=== PATIENT | female | born 1980 | race Caucasian/White ===

== ENCOUNTER 2016-06-16 09:41 | Emergency (ER) | payer OTHER ==
[~2016-06-16 09:41] MED LIST: INSU100C4 SQ; INSU100V8 SQ; ONDA8TAB9 PO
[2016-06-16 09:53] VITALS: BP 146/94
[2016-06-16] MEDS ORDERED: PENICILLIN G BENZATHINE LA 1,200,000 UNIT/2 ML DISP.SYRIN. IM ONE (10:30)
--- NOTE | 2016-06-16 11:01 | PHYS DOC ---
Past Medical History Past Medical History: Diabetes-Type II Past Surgical History: Hysterectomy Additional Past Surgical Histo: D&C, Ablation Alcohol Use: None Drug Use: None Adult General Chief Complaint Chief Complaint: SORE THROAT HPI HPI Patient is a 35 year old female with history of diabetes type 2 who presents with a sore throat and a cough for 2 days. Patient denies any fever. Review of Systems Review of Systems Constitutional: See history of present illness Eyes: Denies change in visual acuity, redness, or eye pain [] HENT: sore throat [] Respiratory: Cough Cardiovascular: No additional information not addressed in HPI [] GI: Denies abdominal pain, nausea, vomiting, bloody stools or diarrhea [] : Denies dysuria or hematuria [] Musculoskeletal: Denies back pain or joint pain [] Integument: Denies rash or skin lesions [] Neurologic: Denies headache, focal weakness or sensory changes [] Endocrine: Denies polyuria or polydipsia [] Current Medications Current Medications Current Medications Medications (Trade) Dose Ordered Sig/Michael Start Time Stop Time Status Last Admin Dose Admin Penicillin G Benzathine (Bicillin L-A) 1,200,000 unit 1X ONCE 06/16/16 10:30 06/16/16 10:31 DC 06/16/16 10:35 1,200,000 UNIT Allergies Allergies Allergies Coded Allergies Type Severity Reaction Last Updated Verified No Known Drug Allergies 06/16/16 No Physical Exam Physical Exam Constitutional: Well developed, well nourished, no acute distress, non-toxic appearance. [] HENT: Normocephalic, atraumatic, bilateral external ears normal, oropharynx moist, no oral exudates, nose normal. [] Midline uvula, posterior pharynx with small amount of petechiae Eyes: PERRLA, EOMI, conjunctiva normal, no discharge. [] Neck: Normal range of motion, no tenderness, supple, no stridor. [] Cardiovascular:Heart rate regular rhythm, no murmur [] Lungs & Thorax: Bilateral breath sounds clear to auscultation [] Abdomen: Bowel sounds normal, soft, no tenderness, no masses, no pulsatile masses. [] Skin: Warm, dry, no erythema, no rash. [] Back: No tenderness, no CVA tenderness. [] Extremities: No tenderness, no cyanosis, no clubbing, ROM intact, no edema. [] Neurologic: Alert and oriented X 3, normal motor function, normal sensory function, no focal deficits noted. [] Psychologic: Affect normal, judgement normal, mood normal. [] Current Patient Data Vital Signs Vital Signs Date Time Temp Pulse Resp B/P Pulse Ox O2 Delivery O2 Flow Rate FiO2 06/16/16 09:53 98.3 102 16 96 Room Air 98.3 EKG EKG [] Radiology/Procedures Radiology/Procedures [] Course & Med Decision Making Course & Med Decision Making Pertinent Labs and Imaging studies reviewed. (See chart for details) Patient is in the ED with sore throat and a cough. Positive rapid strep. She is given Bicillin injection. Discharged with instructions to use saltwater gargles as needed. Tylenol/ Motrin for pain or fever. Follow-up with PCP in 1-2 weeks. Dragon Disclaimer Dragon Disclaimer This electronic medical record was generated, in whole or in part, using a voice recognition dictation system. Departure Departure Impression: Primary Impression: Acute streptococcal pharyngitis Disposition: HOME, SELF-CARE Condition: STABLE Referrals: NO PCP (PCP) Follow-up with your own doctor in one week Patient Instructions: Strep Throat Additional Instructions: You were diagnosed with strep in the emergency room. You were treated with Bicillin injection. Take Tylenol every 4 hours and Motrin every 6 hours as needed for pain. Use saltwater gargles as well. Come back to the emergency room for any worsening or concerning symptoms. Follow-up with your PCP/primary care doctor in one week PAIGE CABRERA APRN Jun 16, 2016 11:01
[2016-06-17 08:01] LABS: NEGATIVE OBC STREP NEG; POSITIVE OBC STREP POS
== END 2016-06-16 11:15 | disposition home or self-care (01) ==
LOC: ER 09:41
DX: J02.0 Streptococcal pharyngitis (principal); E11.9 Type 2 diabetes mellitus without complications; Z90.710 Acquired absence of both cervix and uterus
CPT/HCPCS: 87880; 96372; 99283; J0561

== ENCOUNTER 2016-08-30 07:36 | Emergency (ER) | payer OTHER ==
[~2016-08-30] VITALS: Ht 147.3 cm; Wt 79.4 kg
[2016-08-30] MEDS ORDERED: ASPIRIN 325 MG TABLET PO ONE (08:15)
--- NOTE | 2016-08-30 08:16 | PHYS DOC ---
Past Medical History Past Medical History: Diabetes-Type II Past Surgical History: Hysterectomy Additional Past Surgical Histo: D&C, Ablation Alcohol Use: None Drug Use: None Adult General Chief Complaint Chief Complaint: GENERALIZED BODY ACHES HPI HPI Patient is a 35 year old female with history of diabetes type 2 who presents today with multiple complaints. Patient states she's had generalized body aches for the last 1 week. Patient states the headaches are worse on her right foot. Patient denies any trauma to the right foot. Patient's also complaining of mild mid substernal chest pain radiating to her back that began 2 days ago. She states her substernal chest pain is worse when she takes a deep breath. She states she's been taking ibuprofen for it with no relief. Patient denies any chance she is . Denies any use of hormones, denies any recent hospitalization, denies any shortness of breath. Denies any unilateral leg pain. Denies any fever coughing or congestion. Review of Systems Review of Systems Constitutional: Body aches Eyes: Denies change in visual acuity, redness, or eye pain [] HENT: Denies nasal congestion or sore throat [] Respiratory: Denies cough or shortness of breath [] Cardiovascular: Substernal chest pain GI: Denies abdominal pain, nausea, vomiting, bloody stools or diarrhea [] : Denies dysuria or hematuria [] Musculoskeletal: Denies back pain or joint pain [] Integument: Denies rash or skin lesions [] Neurologic: Denies headache, focal weakness or sensory changes [] Endocrine: Denies polyuria or polydipsia [] Current Medications Current Medications Current Medications Medications (Trade) Dose Ordered Sig/[facility] Start Time Stop Time Status Last Admin Dose Admin Aspirin (Dennys Aspirin) 325 mg 1X ONCE 08/30/16 08:15 08/30/16 08:16 DC 08/30/16 08:56 325 MG Allergies Allergies Allergies Coded Allergies Type Severity Reaction Last Updated Verified No Known Drug Allergies 06/16/16 No Physical Exam Physical Exam Constitutional: Well developed, well nourished, no acute distress, non-toxic appearance. [] HENT: Normocephalic, atraumatic, bilateral external ears normal, oropharynx moist, no oral exudates, nose normal. [] Eyes: PERRLA, EOMI, conjunctiva normal, no discharge. [] Neck: Normal range of motion, no tenderness, supple, no stridor. [] Cardiovascular:Heart rate regular rhythm, no murmur [] Lungs & Thorax: Bilateral breath sounds clear to auscultation [] Abdomen: Bowel sounds normal, soft, no tenderness, no masses, no pulsatile masses. [] Skin: Warm, dry, no erythema, no rash. [] Back: No tenderness, no CVA tenderness. [] Extremities: Right foot with no obvious deformity. No tenderness on palpation of the right foot. Full range of motion to the right foot and toes. +2 right pedal pulse. Cap refill less than 2 seconds the right lower extremity. Sensation intact to the right lower extremity. Neurologic: Alert and oriented X 3, normal motor function, normal sensory function, no focal deficits noted. [] Psychologic: Affect normal, judgement normal, mood normal. [] Current Patient Data Vital Signs Vital Signs Date Time Temp Pulse Resp B/P Pulse Ox O2 Delivery O2 Flow Rate FiO2 08/30/16 08:54 80 18 140/96 96 08/30/16 07:44 97.9 Room Air 97.9 Lab Values Laboratory Tests Test 08/30/16 08:36 08/30/16 08:45 08/30/16 09:05 White Blood Count 7.6x10^3/uL (4.0-11.0) Red Blood Count 4.72x10^6/uL (3.50-5.40) Hemoglobin 15.1g/dL (12.0-15.5) Hematocrit 42.3% (36.0-47.0) Mean Corpuscular Volume 90fL (79-100) Mean Corpuscular Hemoglobin 32pg (25-35) Mean Corpuscular Hemoglobin Concent 36g/dL (31-37) Red Cell Distribution Width 13.3% (11.5-14.5) Platelet Count 153x10^3/uL (140-400) Neutrophils (%) (Auto) 69% (31-73) Lymphocytes (%) (Auto) 24% (24-48) Monocytes (%) (Auto) 5% (0-9) Eosinophils (%) (Auto) 2% (0-3) Basophils (%) (Auto) 1% (0-3) Neutrophils # (Auto) 5.2x10^3uL (1.8-7.7) Lymphocytes # (Auto) 1.8x10^3/uL (1.0-4.8) Monocytes # (Auto) 0.3x10^3/uL (0.0-1.1) Eosinophils # (Auto) 0.1x10^3/uL (0.0-0.7) Basophils # (Auto) 0.1x10^3/uL (0.0-0.2) Prothrombin Time 13.0SEC (11.7-14.0) Prothrombin Time INR 1.0 (0.8-1.1) D-Dimer (Eryn) < 0.27ug/mlFEU (0.00-0.50) Urine Collection Type Unknown Urine Color Yellow Urine Clarity Cloudy Urine pH 6.0 Urine Specific [place] >=1.030 Urine Protein 30mg/dL (NEG-TRACE) Urine Glucose (UA) >=1000mg/dL (NEG) Urine Ketones (Stick) Negativemg/dL (NEG) Urine Blood Small (NEG) Urine Nitrite Positive (NEG) Urine Bilirubin Negative (NEG) Urine Urobilinogen Dipstick 0.2mg/dL (0.2 mg/dL) Urine Leukocyte Esterase Moderate (NEG) Urine RBC 6-10/HPF (0-2) Urine WBC >40/HPF (0-4) Urine Bacteria Many/HPF (0-FEW) Sodium Level 133mmol/L (136-145) L Potassium Level 4.1mmol/L (3.5-5.1) Chloride Level 98mmol/L (98-107) Carbon Dioxide Level 28mmol/L (21-32) Anion Gap 7 (6-14) Blood Urea Nitrogen 9mg/dL (7-20) Creatinine 0.8mg/dL (0.6-1.0) Estimated GFR (Cockcroft-Gault) 81.6 Glucose Level 319mg/dL (70-99) H Calcium Level 8.8mg/dL (8.5-10.1) Magnesium Level 1.6mg/dL (1.8-2.4) L Creatine Kinase 38U/L (26-192) Creatine Kinase MB (Mass) < 0.5ng/mL (0.0-3.6) Creatine Kinase MB Relative Index % (0-4) Troponin I Quantitative < 0.017ng/mL (0.000-0.055) Urine Opiates Screen Neg (NEG) Urine Methadone Screen Neg (NEG) Urine Barbiturates Neg (NEG) Urine Phencyclidine Screen Neg (NEG) Urine Amphetamine/Methamphetamine Neg (NEG) Urine Benzodiazepines Screen Neg (NEG) Urine Cocaine Screen Neg (NEG) Urine Cannabinoids Screen Neg (NEG) Urine Ethyl Alcohol Neg (NEG) Influenza Type A Antigen Negative (NEGATIVE) Influenza Type B Antigen Negative (NEGATIVE) Group A Streptococcus Rapid Positive (NEGATIVE) Laboratory Tests 08/30/16 08:36 Laboratory Tests 08/30/16 08:36 EKG EKG [] Radiology/Procedures Radiology/Procedures []PROCEDURE: FOOT RIGHT 3V Right foot radiographs History: Right foot pain for one week. Comparison: None. Findings: AP, lateral, and oblique views of the right foot. No acute fracture or dislocation is identified. Small Achilles tendon and moderate plantar calcaneal enthesophytes are seen. Accessory navicular is seen. Impression: 1. No acute osseous abnormality identified. 2. Calcaneal enthesophytes. DICTATED and SIGNED BY: EDSON MELENDREZ MD DATE: 08/30/16828 CC: PAIGE CABRERA APRN; NON,STAFF; UNKNOWN PCP NAME ~ PROCEDURE: PORTABLE CHEST 1V Exam: AP portable chest. History: Chest pain, body weakness for one week. Comparison: None. Findings: The heart and mediastinal structures are within normal limits for size. Lungs are without infiltrate. No pneumothorax or pleural effusion is appreciated. Impression: 1. No acute cardiopulmonary process. DICTATED and SIGNED BY: EDSON MELENDREZ MD DATE: 08/30/16828 CC: PAIGE CABRERA APRN; NON,STAFF; UNKNOWN PCP NAME ~ Course & Med Decision Making Course & Med Decision Making Pertinent Labs and Imaging studies reviewed. (See chart for details) Patient is in the ED with complaints of generalized body aches worse on the right foot, she is also complaining of substernal chest pain. Chest x-ray interpreted by radiologist is negative for any acute findings. Right foot x-rays interpreted by radiologist are noted for calcaneus enthesophytes Patient's lab negative including troponin and d-dimer. 08:[address] Selby sinus rhythm heart rate 75 QRS interval 90 no STEMI. Urine positive for UTI. Patient was discharged with cephalexin. Instructed to follow-up with her own PCP in one week. Bobby Disclaimer Bobby Disclaimer This electronic medical record was generated, in whole or in part, using a voice recognition dictation system. Departure Departure Impression: Primary Impression: Body aches Additional Impressions: Urinary tract infection Chest pain Disposition: HOME, SELF-CARE Condition: STABLE Referrals: UNKNOWN PCP NAME (PCP) follow-up with your doctor in one week Patient Instructions: Chest Pain (Nonspecific), Urinary Tract Infection Additional Instructions: You tested positive for urinary tract infection. Please complete your antibiotics. Take ibuprofen 3 times a day chest pain. Your cardiac workup was negative. Follow-up with your doctor in the next 1 week. Scripts Ibuprofen 800 Mg [id number] Mg PO PRN Q6HRS PRN INFLAMMATION #30 TAB Prov:PAIGE CABRERA PHYSICAL THERAPY MANAGER 08/30/16 Cephalexin 500 Mg Tablet1 Tab PO BID #14 TAB Prov:PAIGE CABRERA PHYSICAL THERAPY MANAGER 08/30/16 Problem Qualifiers Additional Impressions: Urinary tract infection Urinary tract infection type: site unspecified Hematuria presence: without hematuria Qualified Code: N39.0 - Urinary tract infection, site not specified Chest pain Chest pain type: unspecified Qualified Code: R07.9 - Chest pain, unspecified PAIGE CABRERA PHYSICAL THERAPY MANAGER Aug 30, 2016 08:16
--- NOTE | 2016-08-30 08:31 | RAD ---
Exam: AP portable chest. History: Chest pain, body weakness for one week. Comparison: None. Findings: The heart and mediastinal structures are within normal limits for size. Lungs are without infiltrate. No pneumothorax or pleural effusion is appreciated. Impression: 1. No acute cardiopulmonary process.
--- NOTE | 2016-08-30 08:33 | RAD ---
Right foot radiographs History: Right foot pain for one week. Comparison: None. Findings: AP, lateral, and oblique views of the right foot. No acute fracture or dislocation is identified. Small Achilles tendon and moderate plantar calcaneal enthesophytes are seen. Accessory navicular is seen. Impression: 1. No acute osseous abnormality identified. 2. Calcaneal enthesophytes.
[2016-08-30 08:46] LABS: BASO # 0.1 x10^3/uL (0.0-0.2); BASO % 1 % (0-3); EOS % 2 % (0-3); HEMATOCRIT 42.3 % (36.0-47.0); HEMOGLOBIN 15.1 g/dL (12.0-15.5); LYMPH # 1.8 x10^3/uL (1.0-4.8); LYMPH % 24 % (24-48); MEAN CORPUSCULAR HEMOGLOBIN 32 pg (25-35); MEAN CORPUSCULAR HGB CONC 36 g/dL (31-37); MEAN CORPUSCULAR VOLUME 90 fL (79-100); MONO % 5 % (0-9); NEUT % 69 % (31-73); PLATELET COUNT 153 x10^3/uL (140-400); RED BLOOD COUNT 4.72 x10^6/uL (3.50-5.40); RED CELL DISTRIBUTION WIDTH 13.3 % (11.5-14.5); WHITE BLOOD COUNT 7.6 x10^3/uL (4.0-11.0)
--- NOTE | 2016-08-30 08:57 | EKG ---
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
[2016-08-30 09:01] LABS: BILIRUBIN,URINE NEGATIVE (NEG); GLUCOSE,URINE >=1000 mg/dL (NEG); NITRITE,URINE POSITIVE (NEG); PROTEIN,URINE 30 mg/dL (NEG-TRACE); UROBILINOGEN,URINE 0.2 mg/dL (0.2 mg/dL)
[2016-08-30 09:07] LABS: BARBITURATES NEG (NEG); BENZODIAZEPINES NEG (NEG); CANNABINOIDS NEG (NEG); COCAINE NEG (NEG); METHADONE NEG (NEG); OPIATES NEG (NEG); PHENCYCLIDINE NEG (NEG)
[2016-08-30 09:12] LABS: BACTERIA,URINE MANY /HPF (0-FEW); WBC,URINE >40 /HPF (0-4)
[2016-08-30 09:16] LABS: CKMB MASS < 0.5 ng/mL (0.0-3.6); CREATINE KINASE 38 U/L (26-192)
[2016-08-30 09:17] LABS: OBC FLU VALID
[2016-08-30 09:24] LABS: CALCIUM 8.8 mg/dL (8.5-10.1); CREATININE 0.8 mg/dL (0.6-1.0); GFR 81.6; MAGNESIUM 1.6 mg/dL (1.8-2.4); POTASSIUM 4.1 mmol/L (3.5-5.1)
[2016-08-30 09:46] LABS: NEGATIVE OBC STREP NEG; POSITIVE OBC STREP POS
[2016-08-30] MEDS ORDERED: CEPH500T PO (10:00)
[2016-08-30] MEDS ORDERED: IBUP-1060 PO (10:00)
[2016-08-30 11:00] VITALS: BP 142/86
== END 2016-08-30 11:02 | disposition home or self-care (01) ==
LOC: ER 07:36
DX: R07.9 Chest pain, unspecified (principal); M79.671 Pain in right foot; E11.9 Type 2 diabetes mellitus without complications; N39.0 Urinary tract infection, site not specified; Z90.710 Acquired absence of both cervix and uterus
CPT/HCPCS: 36415; 71010; 73630; 80048; 80305; 81001; 82553; 83735; 84484; 85027; 85379; 85610; 87804; 87880; 93005; G0481; 99285-25

== ENCOUNTER 2016-09-17 20:40 | Emergency (ER) | payer OTHER ==
[~2016-09-17] VITALS: Ht 147.3 cm; Wt 77.1 kg
[~2016-09-17 20:40] MED LIST changes: +CEPH500T PO; +IBUP-1060 PO
[2016-09-17 20:59] VITALS: BP 163/95
--- NOTE | 2016-09-17 21:08 | PHYS DOC ---
Past Medical History Past Medical History: Diabetes-Type II Past Surgical History: Hysterectomy Additional Past Surgical Histo: D&C, Ablation Alcohol Use: None Drug Use: None Adult General Chief Complaint Chief Complaint: SKIN PROBLEM HPI HPI Patient is a 36 year old into the emergency department with complaints of pain just above the umbilicus. She states it is an intermittent pain and she often will feel a popping sensation. She states it is not present at the time in the emergency department visit but notes that it gets bigger or tenderness to occur when she is standing or bearing down. She reports no fever, no nausea, vomiting , no diarrhea. She reports no discomfort except when she feels there is an area of bulging at her umbilicus. Review of Systems Review of Systems Constitutional: Denies fever or chills [] Eyes: Denies change in visual acuity, redness, or eye pain [] HENT: Denies nasal congestion or sore throat [] Respiratory: Denies cough or shortness of breath [] Cardiovascular: No additional information not addressed in HPI [] GI: Denies abdominal pain, nausea, vomiting, bloody stools or diarrhea [] : Denies dysuria or hematuria [] Musculoskeletal: Denies back pain or joint pain [] Integument: Denies rash or skin lesions [] Neurologic: Denies headache, focal weakness or sensory changes [] Endocrine: Denies polyuria or polydipsia [] Allergies Allergies Allergies Coded Allergies Type Severity Reaction Last Updated Verified No Known Drug Allergies 06/16/16 No Physical Exam Physical Exam Constitutional: Well developed, well nourished, no acute distress, non-toxic appearance. [] HENT: Normocephalic, atraumatic, bilateral external ears normal, oropharynx moist, no oral exudates, nose normal. [] Eyes: PERRLA, EOMI, conjunctiva normal, no discharge. [] Neck: Normal range of motion, no tenderness, supple, no stridor. [] Cardiovascular:Heart rate regular rhythm, no murmur [] Lungs & Thorax: Bilateral breath sounds clear to auscultation [] Abdomen: Bowel sounds normal, soft, no tenderness, no masses, no pulsatile masses. There is a small defect in the rectus abdominis, approximately 2 cm above the umbilicus. There is no herniation of bowel noted at time of exam. [] Skin: Warm, dry, no erythema, no rash. [] Back: No tenderness, no CVA tenderness. [] Extremities: No tenderness, no cyanosis, no clubbing, ROM intact, no edema. [] Neurologic: Alert and oriented X 3, normal motor function, normal sensory function, no focal deficits noted. [] Psychologic: Affect normal, judgement normal, mood normal. [] EKG EKG [] Radiology/Procedures Radiology/Procedures [] Course & Med Decision Making Course & Med Decision Making Pertinent Labs and Imaging studies reviewed. (See chart for details) [] Dragon Disclaimer Dragon Disclaimer This electronic medical record was generated, in whole or in part, using a voice recognition dictation system. Departure Departure Impression: Primary Impression: Hernia of abdominal wall Disposition: 01 HOME, SELF-CARE Condition: STABLE Referrals: ZANE ORTIZ MD Patient Instructions: Hernia, [id number] Additional Instructions: [id number] Tylenol and/or Motrin as needed for symptom management please follow the label on the medication and take as directed. MIGUELITO WOODY CONCERT PROMOTER September 17, 2016 21:08
== END 2016-09-17 21:17 | disposition home or self-care (01) ==
LOC: ER 20:40
DX: K43.9 Ventral hernia without obstruction or gangrene (principal); E11.9 Type 2 diabetes mellitus without complications; Z90.710 Acquired absence of both cervix and uterus
CPT/HCPCS: 99281

== ENCOUNTER 2016-09-26 20:13 | Inpatient (IN) | payer OTHER ==
[~2016-09-26] VITALS: Ht 147.3 cm; Wt 77.6 kg
[2016-09-26 21:23] LABS: BILIRUBIN,URINE NEGATIVE (NEG); GLUCOSE,URINE >=1000 mg/dL (NEG); NITRITE,URINE NEGATIVE (NEG); PH,URINE 5.5; PROTEIN,URINE NEGATIVE (NEG-TRACE); UROBILINOGEN,URINE 0.2 mg/dL (0.2 mg/dL)
[2016-09-26 21:33] LABS: BACTERIA,URINE 0 /HPF (0-FEW); RBC,URINE 0 /HPF (0-2); SQUAMOUS EPITHELIAL CELL,UR FEW /LPF; WBC,URINE 0 /HPF (0-4)
[2016-09-26 21:44] LABS: BASO % 0 % (0-3); EOS % 1 % (0-3); HEMATOCRIT 43.9 % (36.0-47.0); LYMPH % 21 % (24-48); MEAN CORPUSCULAR HEMOGLOBIN 32 pg (25-35); MEAN CORPUSCULAR HGB CONC 34 g/dL (31-37); MEAN CORPUSCULAR VOLUME 92 fL (79-100); MONO % 5 % (0-9); NEUT % 73 % (31-73); PLATELET COUNT 158 x10^3/uL (140-400); RED BLOOD COUNT 4.77 x10^6/uL (3.50-5.40); RED CELL DISTRIBUTION WIDTH 13.3 % (11.5-14.5); WHITE BLOOD COUNT 9.4 x10^3/uL (4.0-11.0)
[2016-09-26] MEDS: fentaNYL PF VIAL 100 MCG/2 ML VIAL IV PRN ×3 (21:46→23:24)
[2016-09-26 21:53] LABS: CALCIUM 9.2 mg/dL (8.5-10.1); CREATININE 0.7 mg/dL (0.6-1.0); GFR 94.7; POTASSIUM 3.5 mmol/L (3.5-5.1)
[2016-09-26 21:58] LABS: DIRECT BILIRUBIN 0.1 mg/dL (0.0-0.2); TOTAL BILIRUBIN 0.6 mg/dL (0.2-1.0); TOTAL PROTEIN 8.6 g/dL (6.4-8.2)
[2016-09-26] MEDS ORDERED: ONDANSETRON PF 4 MG/2 ML VIAL. IV ONE (22:00)
[2016-09-26] MEDS ORDERED: IV NORMAL SALINE 1000ML BAG 1,000 ML IV SCH (22:00)
--- NOTE | 2016-09-26 22:21 | PHYS DOC ---
Past Medical History Past Medical History: Diabetes-Type II Past Surgical History: Hysterectomy Additional Past Surgical Histo: D&C, Ablation Alcohol Use: None Drug Use: None Adult General Chief Complaint Chief Complaint: ABDOMINAL PAIN HPI HPI Patient is a 36 year old female who presents with umbilical abdominal pain associated with periumbilical mass concerned for umbilical hernia that is stuck. She notes pain and protrusion since waking at 5 AM. Her pain is constant , gradually worsening, achy, now severe. She notes nausea and vomiting times multiple that is nonbloody and nonbilious. She notes slight supraumbilical crampy pain with urination well. States she has had some diarrhea today. She denies fever or chills, chest pain, cough, hematuria, back pain, dark or bloody stools. Review of Systems Review of Systems Constitutional: Denies fever or chills [] Eyes: Denies change in visual acuity, redness, or eye pain [] HENT: Denies nasal congestion or sore throat [] Respiratory: Denies cough or shortness of breath [] Cardiovascular: No additional information not addressed in HPI [] GI: Denies bloody stools or bloody emesis [] : Denies dysuria or hematuria [] Musculoskeletal: Denies back pain or joint pain [] Integument: Denies rash or skin lesions [] Neurologic: Denies headache, focal weakness or sensory changes [] Endocrine: Denies polyuria or polydipsia [] Current Medications Current Medications Current Medications Medications (Trade) Dose Ordered Sig/Michael Start Time Stop Time Status Last Admin Dose Admin Fentanyl Citrate (Fentanyl 2ml Vial) 50 mcg PRN Q15MIN PRN 09/26/16 21:45 09/27/16 21:44 09/26/16 22:16 50 MCG Info (Do NOT chart on this entry -- for MONITORING) 1 each PRN DAILY PRN 09/26/16 22:30 09/28/16 22:29 Iohexol (Omnipaque 300 Mg/ml) 75 ml 1X ONCE 09/26/16 23:00 09/26/16 23:01 DC 09/26/16 22:29 75 ML Ondansetron HCl (Zofran) 4 mg 1X ONCE 09/26/16 22:00 09/26/16 22:01 DC 09/26/16 21:43 4 MG Sodium Chloride 1,000 ml @ 1,000 mls/hr Q1H 09/26/16 22:00 09/26/16 22:59 DC 09/26/16 21:41 1,000 MLS/HR Allergies Allergies Allergies Coded Allergies Type Severity Reaction Last Updated Verified No Known Drug Allergies 06/16/16 No Physical Exam Physical Exam Constitutional: Well developed, well nourished, no acute distress, non-toxic appearance. [] HENT: Normocephalic, atraumatic, bilateral external ears normal, oropharynx moist, nose normal. [] Eyes: PERRLA, EOMI. [] Neck: Normal range of motion, supple. [] Cardiovascular:Heart rate regular rhythm [] Lungs & Thorax: Bilateral breath sounds clear to auscultation [] Abdomen: Bowel sounds normal, soft, mild general tenderness with moderate umbilical tenderness; palpable umbilical hernia that does not reduce with no overlying skin changes, crepitance, or induration. [] Skin: Warm, dry, no erythema, no rash. [] Back: No tenderness, no CVA tenderness. [] Extremities: No tenderness, ROM intact, no edema. [] Neurologic: Alert and oriented X 3, normal motor function, normal sensory function, no focal deficits noted. [] Psychologic: Affect normal, judgement normal, mood normal. [] Current Patient Data Vital Signs Vital Signs Date Time Temp Pulse Resp B/P (MAP) Pulse Ox O2 Delivery O2 Flow Rate FiO2 09/26/16 22:16 96 Room Air 09/26/16 21:46 16 09/26/16 20:52 99.4 112 173/94 (120) 99.4 Lab Values Laboratory Tests Test 09/26/16 20:13 09/26/16 20:51 09/26/16 21:00 POC Urine HCG, Qualitative Hcg negative (Negative) Urine Collection Type Unknown Urine Color Yellow Urine Clarity Clear Urine pH 5.5 Urine Specific [place] 1.025 Urine Protein Negative mg/dL (NEG-TRACE) Urine Glucose (UA) >=1000 mg/dL (NEG) Urine Ketones (Stick) Negative mg/dL (NEG) Urine Blood Negative (NEG) Urine Nitrite Negative (NEG) Urine Bilirubin Negative (NEG) Urine Urobilinogen Dipstick 0.2 mg/dL (0.2 mg/dL) Urine Leukocyte Esterase Negative (NEG) Urine RBC 0 /HPF (0-2) Urine WBC 0 /HPF (0-4) Urine Squamous Epithelial Cells Few /LPF Urine Bacteria 0 /HPF (0-FEW) White Blood Count 9.4 x10^3/uL (4.0-11.0) Red Blood Count 4.77 x10^6/uL (3.50-5.40) Hemoglobin 15.0 g/dL (12.0-15.5) Hematocrit 43.9 % (36.0-47.0) Mean Corpuscular Volume 92 fL (79-100) Mean Corpuscular Hemoglobin 32 pg (25-35) Mean Corpuscular Hemoglobin Concent 34 g/dL (31-37) Red Cell Distribution Width 13.3 % (11.5-14.5) Platelet Count 158 x10^3/uL (140-400) Neutrophils (%) (Auto) 73 % (31-73) Lymphocytes (%) (Auto) 21 % (24-48) L Monocytes (%) (Auto) 5 % (0-9) Eosinophils (%) (Auto) 1 % (0-3) Basophils (%) (Auto) 0 % (0-3) Neutrophils # (Auto) 6.8 x10^3uL (1.8-7.7) Lymphocytes # (Auto) 2.0 x10^3/uL (1.0-4.8) Monocytes # (Auto) 0.5 x10^3/uL (0.0-1.1) Eosinophils # (Auto) 0.1 x10^3/uL (0.0-0.7) Basophils # (Auto) 0.0 x10^3/uL (0.0-0.2) Sodium Level 133 mmol/L (136-145) L Potassium Level 3.5 mmol/L (3.5-5.1) Chloride Level 95 mmol/L (98-107) L Carbon Dioxide Level 25 mmol/L (21-32) Anion Gap 13 (6-14) Blood Urea Nitrogen 11 mg/dL (7-20) Creatinine 0.7 mg/dL (0.6-1.0) Estimated GFR (Cockcroft-Gault) 94.7 Glucose Level 322 mg/dL (70-99) H Lactic Acid Level 2.5 mmol/L (0.4-2.0) H Calcium Level 9.2 mg/dL (8.5-10.1) Total Bilirubin 0.6 mg/dL (0.2-1.0) Direct Bilirubin 0.1 mg/dL (0.0-0.2) Aspartate Amino Transferase (AST) 43 U/L (15-37) H Alanine Aminotransferase (ALT) 65 U/L (14-59) H Alkaline Phosphatase 86 U/L (46-116) Total Protein 8.6 g/dL (6.4-8.2) H Albumin 4.0 g/dL (3.4-5.0) Lipase 466 U/L (73-393) H Laboratory Tests 09/26/16 21:00 Laboratory Tests 09/26/16 21:00 Radiology/Procedures Radiology/Procedures CT abdomen and pelvis with IV contrast Impression: 1. There is again fat-containing umbilical hernia, no internal bowel. 2. There is diffuse hepatic steatosis. There is hepatomegaly. 3. There is likely right adnexal cyst. Electronically signed by: Osiel Harris MD (09/26/2016 10:51 PM) Course & Med Decision Making Course & Med Decision Making Pertinent Labs and Imaging studies reviewed. (See chart for details) Has lactic acidosis, with largely unremarkable laboratory evaluation otherwise. Have concern for strangulated hernia. Discussed case with Dr. Das, general surgery, who recommends CT abdomen/pelvis. CT as above. Discussed further with Dr. Das, who recommends admission and surgery in the a.m. Discussed case with Dr. eFrguson, who will admit. Dragon Disclaimer Dragon Disclaimer This electronic medical record was generated, in whole or in part, using a voice recognition dictation system. Departure Departure Impression: Primary Impression: Incarcerated umbilical hernia Disposition: ADMITTED INPATIENT Condition: STABLE Referrals: JANNETH VILLAVICENCIO (PCP) Rj RHODES MD September 26, 2016 22:20
[2016-09-26] MEDS ORDERED: CONTRAST GIVEN MC PRN (22:30)
--- NOTE | 2016-09-26 22:54 | RAD ---
CT abdomen and pelvis with contrast History: Umbilical pain for few weeks, nausea, vomiting, diarrhea Technique: After the administration of intravenous contrast, CT imaging was performed of the abdomen and pelvis. No oral contrast was given as per request. Multiplanar images are reviewed. Exposure: One or more of the following individualized dose reduction techniques were utilized for this examination: 1. Automated exposure control 2. Adjustment of the mA and/or kV according to patient size 3. Use of iterative reconstruction technique. Contrast: 75 cc Omnipaque 300 Comparison: December 25, 2015 Findings: There is no significant abnormality of the visualized lung bases. There is no significant focal abnormality of the liver, spleen, pancreas, adrenal glands. There is diffuse hepatic steatosis more apparent on this exam. There is hepatomegaly, right lobe of the liver on the order of 22 cm longitudinal. Both kidneys enhance without hydronephrosis. Gallbladder is present without obvious intraluminal abnormality by CT. Accurate evaluation of bowel is limited without oral contrast. There is no significant inflammatory change adjacent to the bowel. There is no evidence of bowel obstruction, free fluid, or free air. Normal appendix is visualized. There is again fat-containing umbilical hernia, neck on the order of 1 cm with transverse dimension of the hernia sac on the order of 3 cm. There is no internal bowel. There is mild colonic diverticulosis. There again has been hysterectomy. There is again a clip in the right pelvis, adjacent focus of ground density probably due to adnexal cyst greater than previously. Urinary bladder morphology is within normal limits. Impression: 1. There is again fat-containing umbilical hernia, no internal bowel. 2. There is diffuse hepatic steatosis. There is hepatomegaly. 3. There is likely right adnexal cyst. Electronically signed by: Osiel Harris MD (09/26/2016 10:51 PM)
[2016-09-26] MEDS ORDERED: IOHEXOL 300 MG/ML 75 ML VIAL IV ONE (23:00)
[2016-09-26] MEDS ORDERED: ACETAMINOPHEN 325 MG TABLET. PO PRN (23:15)
--- NOTE | 2016-09-26 23:19 | ACF ---
Admission Forms Criteria ABDOMINAL PAIN Clinical Indications for Admission to Inpatient Care (Place 'X' for any and all applicable criteria): Admission is indicated for ANY ONE of the following(1)(2)(3)(4)(5): [X ]I. Inpatient admission required rather than observation care (Also use Abdominal Pain: Observation Care, as appropriate) because of ANY ONE of the following: [ ]a) Severe pain requiring acute inpatient management [X ]b) Identification of etiology/finding that requires inpatient care (eg, aortic dissection, free air) [ ]c) Absent bowel sounds with complete ileus(6) [ ]d) Suspected toxic megacolon [ ]e) Severe electrolyte abnormalities requiring inpatient care [ ]f) High fever or infection requiring inpatient admission as indicated by ANY ONE of following(7)(8): [ ] i) Appropriate outpatient or observational care antimicrobial treatment unavailable, not effective, or not feasible [ ] ii) Documented bacteremia [ ] iii) Temperature > 104.9 degrees F (oral) [ ] iv) T >103.1 F (oral) or < 96.8 F(rectal) that does not respond to all emergency treatment measures [ ]g) Signs of intestinal obstruction [B] [ ]h) Hemodynamic instability [ ]i) IV fluid to replace significant ongoing losses (greater than 3 L/m2 per day) (12)(13) [ ]j) Percutaneous or open drainage (eg, abscess, biliary tract ) procedures [ ]k) Parenteral nutrition regimen that must be implemented on inpatient basis [ ]l) Other condition,treatment or monitoring requiring inpatient admission. [ ]II. Peritoneal signs present [ ]III. Surgery needed that cannot be performed on an ambulatory basis. [ ]IV. Evaluation requires patient to not eat or drink for extended period ( eg, more than 24 hours). [ ]V. Contraindications and/or Inappropriate clinical situations for Observational Care in patients with abdominal pain, when ANY ONE of the following is required: [ ]a) Thorough evaluation is required to prevent catastrophic events due to delays in diagnosing (e.g.Mesenteric ischemia) 1,3 [ ]b) Patient with severe pathology or with chronic symptoms unlikely to improve in the ED stay (3) [ ]. General contraindications and/or Inappropriate clinical situations for Observational Care in patients with abdominal pain, when ANY ONE of the following is required: [ ]a) Prediction of prolongation of LOS based on ANY ONE of the following may be considered as a contraindication for observational care 2, 3, 4, 5, 6, 7, 8, 9, 10, 11 [ ]i) Age > 65 yrs. [ ]ii) Patient arriving by ambulance [ ]iii) Patient with high acuity [ ]iv) Patient requiring vital sign monitoring [ ]v) Patient on IV medication [ ]b) Systolic blood pressures 180mmHg 3,12 [ ]c) Patient with altered mental status including delirium and other alteration of consciousness, (3) [ ]d) Patient whose discharge disposition will be to a fpc home or rehabilitation home should not be managed in Emergency Department Observation Unit. CMS rule requires 3 days hospital stay before such placement.3,13 [ ]e) Patient with failure to thrive due to broad array of etiologies 3,16,17 [ ]f) Inability to ambulate 3,14 Extended stay beyond goal length of stay may be needed for(2)(3): [ ]a) Persistent abdominal pain with suspected intra-abdominal process [ ]b) Diagnosed condition requiring continued stay (e.g., pancreatitis, complicated diverticulitis) [ ]c) Surgery (e.g., colectomy) The original [facility] content created by [employer] has been revised. The portions of the content which have been revised are identified through the use of italic text or in bold, and [facility] has neither reviewed nor approved the modified material.All other unmodified content is copyright [facility]. Please see references footnoted in the original [facility] edition 2016 Admission Criteria Met?: Yes ERIC CARTER September 26, 2016 23:19
[2016-09-26] MEDS: ONDANSETRON PF 4 MG/2 ML VIAL. IV PRN (23:21)
[2016-09-26] MEDS ORDERED: IV NORMAL SALINE 1000ML BAG 1,000 ML IV ONE (23:30)
[2016-09-26 23:50] VITALS: BP 153/92
[2016-09-27] VITALS (12 sets, daily range): BP systolic 115–171; BP diastolic 77–101
[2016-09-27] MEDS: MORPHINE SULFATE 4 MG/ML DISP.SYRIN. IV PRN ×8 (00:02→22:39)
[2016-09-27] MEDS: IV NORMAL SALINE 1000ML BAG 1,000 ML IV SCH ×3 (00:03→17:44)
[2016-09-27] MEDS ORDERED: METF500T4 PO (00:52)
[2016-09-27] MEDS ORDERED: SERT100T PO (00:52)
[2016-09-27] MEDS: ONDANSETRON PF 4 MG/2 ML VIAL. IV PRN ×2 (06:17→20:24)
[2016-09-27] MEDS ORDERED: IV RINGERS,LACTATED 1000ML 1,000 ML IV SCH (07:27)
[2016-09-27] MEDS ORDERED: fentaNYL PF VIAL 100 MCG/2 ML VIAL IV PRN ×2 (07:30)
[2016-09-27] MEDS ORDERED: ONDANSETRON PF 4 MG/2 ML VIAL. IV PRN (07:30)
[2016-09-27] MEDS ORDERED: PROCHLORPERAZINE 10 MG/2 ML VIAL. IV PRN (07:30)
[2016-09-27] MEDS ORDERED: HYDROmorphone 2 MG/ML VIAL IV PRN (07:30)
[2016-09-27] MEDS ORDERED: LIDOCAINE 1% 1 ML SYRINGE. ID PRN (07:30)
--- NOTE | 2016-09-27 09:54 | PDOC1 ---
History and Physical Date of Admission Date of Admission DATE: 09/27/16 TIME: 09:48 Identification/Chief Complaint Chief Complaint abd pain, worse Problems: Source Source: Caregiver, Chart review, Patient History of Present Illness History of Present Illness 36 y.o overweight female admitted overnight bec of worsening epigastric pain that started 2 weeks ago, 02/11, no identifiable precipitating factor, relieved by IV narcs.associated with nausea, emesis and loose stool ( none of those now), no fever, no radiation of pain,. SHe visited ER 2 weeks ago, sent home, this time last night showed incarcerated umbilical hernia., Pt for oR later by GS, just had a shower, looks comfortable K 3.3, rest of labs ok MED Hx: DM on OHA Past surgical: CS, and hysterrectomy NKDA NOn smoker, non drinker, no recreational drugs Meds at home: metformin and SSI and glargine 30 units qhs FAm hx: reviewed, non contributory BS running high, mid 200s\ CT I have personally reviewed: Impression: 1. There is again fat-containing umbilical hernia, no internal bowel. 2. There is diffuse hepatic steatosis. There is hepatomegaly. 3. There is likely right adnexal cyst. Past Medical History Endocrine: Diabetes Past Surgical History Past Surgical History: , Hysterectomy Family History Family History: No Significant Social History Smoke: No ALCOHOL: none Drugs: None Current Problem List Problem List Problems Medical Problems: (1) Incarcerated umbilical hernia Status: Acute Problems: Current Medications Current Medications Current Medications Fentanyl Citrate (Fentanyl 2ml Vial) 50 mcg PRN Q15MIN PRN IV PAIN GREATER THAN 3/10 Last administered on 09/26/16 23:24; Start 09/26/16 at 21:45; Stop at 21:44 Sodium Chloride 1,000 ml @ 1,000 mls/hr Q1H IV Last administered on 09/26/16 21:41; Start 09/26/16 at 22:00; Stop 09/26/16 at 22:59; Status DC Ondansetron HCl (Zofran) 4 mg 1X ONCE IV Last administered on 09/26/16 21:43 ; Start 09/26/16 at 22:00; Stop 09/26/16 at 22:01; Status DC Iohexol (Omnipaque 300 Mg/ml) 75 ml 1X ONCE IV Last administered on 09/26/16 22:29; Start 09/26/16 at 23:00; Stop 09/26/16 at 23:01; Status DC Info (Do NOT chart on this entry -- for MONITORING) 1 each PRN DAILY PRN MC SEE COMMENTS; Start 09/26/16 at 22:30; Stop 09/28/16 at 22:29 Sodium Chloride 1,000 ml @ 1,000 mls/hr 1X ONCE IV Last administered on 23:20; Start 09/26/16 at 23:30; Stop 09/27/16 at 00:29; Status DC Ondansetron HCl (Zofran) 4 mg PRN Q8HRS PRN IV NAUSEA/VOMITING Last administered on 09/27/16 06:17; Start 09/26/16 at 23:15; Stop 09/27/16 at 23:14 Morphine Sulfate 4 mg PRN Q2HR PRN IV SEVERE PAIN Last administered on 08:28; Start 09/26/16 at 23:15; Stop 09/27/16 at 23:14 Sodium Chloride 1,000 ml @ 150 mls/hr Q6H40M IV Last administered on 06:17; Start 09/26/16 at 23:09; Stop 09/27/16 at 23:08 Acetaminophen (Tylenol) 650 mg PRN Q4HRS PRN PO FEVER; Start 09/26/16 at 23:15 ; Stop 09/27/16 at 23:14 Cefazolin Sodium/ Dextrose 50 ml @ 100 mls/hr PREOP PRN PRN IV PREOP; Start at 23:45; Stop 09/27/16 at 23:44 Ondansetron HCl (Zofran) 4 mg PRN Q6HRS PRN IV NAUSEA/VOMITING; Start 09/27/16 at 07:30; Stop 09/28/16 at 07:29 Fentanyl Citrate (Fentanyl 2ml Vial) 25 mcg PRN Q5MIN PRN IV MILD PAIN; Start 09/27/16 at 07:30; Stop 09/28/16 at 07:29 Fentanyl Citrate (Fentanyl 2ml Vial) 50 mcg PRN Q5MIN PRN IV MODERATE PAIN; Start 09/27/16 at 07:30; Stop 09/28/16 at 07:29 Morphine Sulfate 1 mg PRN Q10MIN PRN IV SEVERE PAIN; Start 09/27/16 at 07:30; Stop 09/28/16 at 07:29 Ringer's Solution 1,000 ml @ 30 mls/hr Q24H IV ; Start 09/27/16 at 07:27; Stop 09/27/16 at 19:26 Lidocaine HCl 2 ml PRN 1X PRN ID PRIOR TO IV START; Start 09/27/16 at 07:30; Stop 09/28/16 at 07:29 Hydromorphone HCl (Dilaudid) 0.5 mg PRN Q10MIN PRN IV SEV PAIN, Second choice; Start 09/27/16 at 07:30; Stop 09/28/16 at 07:29 Prochlorperazine Edisylate (Compazine) 5 mg PACU PRN PRN IV NAUSEA, MRX1; Start 09/27/16 at 07:30; Stop 09/28/16 at 07:29 Active Scripts Active Reported Zoloft (Sertraline Hcl) 100 Mg Tablet 100 Mg PO DAILY Metformin Hcl 500 Mg Tablet 500 Mg PO BIDWMEALS Lantus (Insulin Glargine,Hum.rec.anlog) 100 Unit/1 Ml Vial 30 Unit SQ Novolog (Insulin Aspart) 100 Unit/1 Ml Cartridge 0-60 Unit SQ TIDAC Allergies Allergies: Coded Allergies: No Known Drug Allergies (Unverified , 06/16/16) ROS General: No: Chills, Night Sweats, Fatigue, Malaise, Appetite, Other PSYCHOLOGICAL ROS: No: Anxiety, Behavioral Disorder, Concentration difficultie , Decreased libido, Depression, Disorientation, Hallucinations, Hostility, Irritablity, Memory difficulties, Mood Swings, Obsessive thoughts, Physical abuse, Sexual abuse, Sleep disturbances, Suicidal ideation, Other Eyes: No Blurry vision, No Decreased vision, No Double vision, No Dry eyes, No Excessive tearing, No Eye Pain, No Itchy Eyes, No Loss of vision, No Photophobia , No Scotomata, No Uses contacts, No Uses glasses, No Other HEENT: No: Heacaches, Visual Changes, Hearing change, Nasal congestion, Nasal discharge, Oral lesions, Sinus pain, Sore Throat, Epistaxis, Sneezing, Snoring, Tinnitus, Vertigo, Vocal changes, Other ALLERGY AND IMMUNOLOGY: No: Hives, Insect Bite Sensitivity, Itchy/Watery Eyes, Nasal Congestion, Post Nasal Drip, Seasonal Allergies, Other Hematological and Lymphatic: No: Bleeding Problems, Blood Clots, Blood Transfusions, Brusing, Night Sweats, Pallor, Swollen Lymph Nodes, Other ENDOCRINE: No: Breast Changes, Galactorrhea, Hair Pattern Changes, Hot Flashes , Malaise/lethargy, Mood Swings, Palpitations, Polydipsia/polyuria, Skin Changes , Temperature Intolerance, Unexpected Weight Changes, Other Breast: No New/Changing Breast Lumps, No Nipple changes, No Nipple discharge, No Other Respiratory: No: Cough, Hemoptysis, Orthopnea, Pleuritic Pain, Shortness of breath, SOB with excertion, Sputum Changes, Stridor, Tachypnea, Wheezing, Other Cardiovascular: No Chest Pain, No Palpitations, No Orthopnea, No Paroxysmal Noc. Dyspnea, No Edema, No Lt Headedness, No Other Gastrointestinal: Yes Nausea, Yes Vomiting, Yes Abdominal Pain, Yes Diarrhea Genitourinary: No Dysuria, No Frequency, No Incontinence, No Hematuria, No Retention, No Discharge, No Urgency, No Pain, No Flank Pain, No Other, No , No , No , No , No , No , No Musculoskeletal: No Gait Disturbance, No Joint Pain, No Joint Stiffness, No Joint Swelling, No Muscle Pain, No Muscular Weakness, No Pain In:, No Swelling In:, No Other Neurological: No Behavorial Changes, No Bowel/Bladder ControlChng, No Confusion , No Dizziness, No Gait Disturbance, No Headaches, No Impaired Coord/balance, No Memory Loss, No Numbness/Tingling, No Seizures, No Speech Problems, No Tremors, No Visual Changes, No Weakness, No Other Skin: No Dry Skin, No Eczema, No Hair Changes, No Lumps, No Mole Changes, No Mottling, No Nail Changes, No Pruritus, No Rash, No Skin Lesion Changes, No Other, No Acne Physical Exam General: Alert, Oriented X3, Cooperative, No acute distress HEENT: PERRLA, EOMI Lungs: Clear to auscultation, Normal air movement Heart: S1S2, RRR, no thrills, no rubs, no gallops Cardiovascular: S1, S2 Breasts: Normal Abdomen: Soft, Other (tenderness epiogatsric area, positive bS< no guarding) Rectal Exam: not examined PELVIC: Nml ext genitalia Extremities: No clubbing, No cyanosis, No edema, Normal pulses, No tenderness/ swelling Neuro: Normal gait, Normal speech, Strength at 5/5 X4 ext, Normal tone, Sensation intact, Cranial nerves 3-12 NL, Reflexes 2+ Psych/Mental Status: Mental status NL, Mood NL Vitals Vitals Vital Signs Date Time Temp Pulse Resp B/P (MAP) Pulse Ox O2 Delivery O2 Flow Rate FiO2 09/27/16 08:28 Room Air 09/27/16 07:00 98.6 87 20 134/87 (103) 93 98.6 Labs Labs Laboratory Tests Test 09/26/16 20:13 09/26/16 20:51 09/26/16 21:00 09/27/16 00:02 Bedside Urine HCG, Qualitative Hcg negative (Negative) Urine Collection Type Unknown Urine Color Yellow Urine Clarity Clear Urine pH 5.5 Urine Specific [place] 1.025 Urine Protein Negative mg/dL (NEG-TRACE) Urine Glucose (UA) >=1000 mg/dL (NEG) Urine Ketones (Stick) Negative mg/dL (NEG) Urine Blood Negative (NEG) Urine Nitrite Negative (NEG) Urine Bilirubin Negative (NEG) Urine Urobilinogen Dipstick 0.2 mg/dL (0.2 mg/dL) Urine Leukocyte Esterase Negative (NEG) Urine RBC 0 /HPF (0-2) Urine WBC 0 /HPF (0-4) Urine Squamous Epithelial Cells Few /LPF Urine Bacteria 0 /HPF (0-FEW) White Blood Count 9.4 x10^3/uL (4.0-11.0) Red Blood Count 4.77 x10^6/uL (3.50-5.40) Hemoglobin 15.0 g/dL (12.0-15.5) Hematocrit 43.9 % (36.0-47.0) Mean Corpuscular Volume 92 fL (79-100) Mean Corpuscular Hemoglobin 32 pg (25-35) Mean Corpuscular Hemoglobin Concent 34 g/dL (31-37) Red Cell Distribution Width 13.3 % (11.5-14.5) Platelet Count 158 x10^3/uL (140-400) Neutrophils (%) (Auto) 73 % (31-73) Lymphocytes (%) (Auto) 21 % (24-48) Monocytes (%) (Auto) 5 % (0-9) Eosinophils (%) (Auto) 1 % (0-3) Basophils (%) (Auto) 0 % (0-3) Neutrophils # (Auto) 6.8 x10^3uL (1.8-7.7) Lymphocytes # (Auto) 2.0 x10^3/uL (1.0-4.8) Monocytes # (Auto) 0.5 x10^3/uL (0.0-1.1) Eosinophils # (Auto) 0.1 x10^3/uL (0.0-0.7) Basophils # (Auto) 0.0 x10^3/uL (0.0-0.2) Sodium Level 133 mmol/L (136-145) Potassium Level 3.5 mmol/L (3.5-5.1) Chloride Level 95 mmol/L (98-107) Carbon Dioxide Level 25 mmol/L (21-32) Anion Gap 13 (6-14) Blood Urea Nitrogen 11 mg/dL (7-20) Creatinine 0.7 mg/dL (0.6-1.0) Estimated GFR (Cockcroft-Gault) 94.7 Glucose Level 322 mg/dL (70-99) Lactic Acid Level 2.5 mmol/L (0.4-2.0) Calcium Level 9.2 mg/dL (8.5-10.1) Total Bilirubin 0.6 mg/dL (0.2-1.0) Direct Bilirubin 0.1 mg/dL (0.0-0.2) Aspartate Amino Transf (AST/SGOT) 43 U/L (15-37) Alanine Aminotransferase (ALT/SGPT) 65 U/L (14-59) Alkaline Phosphatase 86 U/L (46-116) Total Protein 8.6 g/dL (6.4-8.2) Albumin 4.0 g/dL (3.4-5.0) Lipase 466 U/L (73-393) Glucose (Fingerstick) 293 mg/dL (70-99) Test 09/27/16 07:34 Glucose (Fingerstick) 227 mg/dL (70-99) Laboratory Tests Test 09/26/16 20:13 09/26/16 20:51 09/26/16 21:00 09/27/16 00:02 Bedside Urine HCG, Qualitative Hcg negative (Negative) Urine Collection Type Unknown Urine Color Yellow Urine Clarity Clear Urine pH 5.5 Urine Specific [place] 1.025 Urine Protein Negative mg/dL (NEG-TRACE) Urine Glucose (UA) >=1000 mg/dL (NEG) Urine Ketones (Stick) Negative mg/dL (NEG) Urine Blood Negative (NEG) Urine Nitrite Negative (NEG) Urine Bilirubin Negative (NEG) Urine Urobilinogen Dipstick 0.2 mg/dL (0.2 mg/dL) Urine Leukocyte Esterase Negative (NEG) Urine RBC 0 /HPF (0-2) Urine WBC 0 /HPF (0-4) Urine Squamous Epithelial Cells Few /LPF Urine Bacteria 0 /HPF (0-FEW) White Blood Count 9.4 x10^3/uL (4.0-11.0) Red Blood Count 4.77 x10^6/uL (3.50-5.40) Hemoglobin 15.0 g/dL (12.0-15.5) Hematocrit 43.9 % (36.0-47.0) Mean Corpuscular Volume 92 fL (79-100) Mean Corpuscular Hemoglobin 32 pg (25-35) Mean Corpuscular Hemoglobin Concent 34 g/dL (31-37) Red Cell Distribution Width 13.3 % (11.5-14.5) Platelet Count 158 x10^3/uL (140-400) Neutrophils (%) (Auto) 73 % (31-73) Lymphocytes (%) (Auto) 21 % (24-48) Monocytes (%) (Auto) 5 % (0-9) Eosinophils (%) (Auto) 1 % (0-3) Basophils (%) (Auto) 0 % (0-3) Neutrophils # (Auto) 6.8 x10^3uL (1.8-7.7) Lymphocytes # (Auto) 2.0 x10^3/uL (1.0-4.8) Monocytes # (Auto) 0.5 x10^3/uL (0.0-1.1) Eosinophils # (Auto) 0.1 x10^3/uL (0.0-0.7) Basophils # (Auto) 0.0 x10^3/uL (0.0-0.2) Sodium Level 133 mmol/L (136-145) Potassium Level 3.5 mmol/L (3.5-5.1) Chloride Level 95 mmol/L (98-107) Carbon Dioxide Level 25 mmol/L (21-32) Anion Gap 13 (6-14) Blood Urea Nitrogen 11 mg/dL (7-20) Creatinine 0.7 mg/dL (0.6-1.0) Estimated GFR (Cockcroft-Gault) 94.7 Glucose Level 322 mg/dL (70-99) Lactic Acid Level 2.5 mmol/L (0.4-2.0) Calcium Level 9.2 mg/dL (8.5-10.1) Total Bilirubin 0.6 mg/dL (0.2-1.0) Direct Bilirubin 0.1 mg/dL (0.0-0.2) Aspartate Amino Transf (AST/SGOT) 43 U/L (15-37) Alanine Aminotransferase (ALT/SGPT) 65 U/L (14-59) Alkaline Phosphatase 86 U/L (46-116) Total Protein 8.6 g/dL (6.4-8.2) Albumin 4.0 g/dL (3.4-5.0) Lipase 466 U/L (73-393) Glucose (Fingerstick) 293 mg/dL (70-99) Test 09/27/16 07:34 Glucose (Fingerstick) 227 mg/dL (70-99) VTE Prophylaxis Ordered VTE Prophylaxis Devices: Yes VTE Pharmacological Prophylaxi: Yes Assessment/Plan Assessment/Plan 1. Incarcerated Umbilical hernia 2. DM 2 on OHA 3. Overweight 4. Hypokalemia PLAN: Replace K NPO IVF GS consult SSI REsume meds post op POst op labs Dw pt and RN ANN PRITCHARD MD September 27, 2016 09:54
[2016-09-27] MEDS ORDERED: DEXTROSE 50% 25 GM / 50ML DISP.SYRIN. IV PRN (10:00)
[2016-09-27] MEDS ORDERED: BUPIVACAINE-EPI 0.25%-1:200000 50 ML VIAL. ONE (10:51)
[2016-09-27] MEDS: INSULIN ASPART 300 UNITS/3 ML INSULN.PEN SQ SCH ×2 (12:12→17:10)
--- NOTE | 2016-09-27 13:31 | PDOC2 ---
CONSULT Date of Consult Date of Consult DATE: 09/27/16 TIME: 13:28 Reason for Consult Reason for Consult: Abd pain Source Source: Patient History of Present Illness Reason for Visit: 36 yo female who has had a bulge and pain at the umbilicus for 8 months, last night became very hard and painful with N/V. Past Medical History Cardiovascular: No pertinent hx Pulmonary: Asthma GI: No pertinent hx Heme/Onc: No pertinent hx Hepatobiliary: No pertinent hx Psych: No pertinent hx Rheumatologic: No pertinent hx Infectious disease: No pertinent hx ENT: No pertinent hx Renal/: No pertinent hx Endocrine: Diabetes Past Surgical History Past Surgical History: , Hysterectomy Family History Family History: No Significant Social History No ALCOHOL: none Drugs: None Current Problem List Problem List Problems Medical Problems: (1) Incarcerated umbilical hernia Status: Acute Current Medications Current Medications Current Medications Fentanyl Citrate (Fentanyl 2ml Vial) 50 mcg PRN Q15MIN PRN IV PAIN GREATER THAN 3/10 Last administered on 09/26/16 23:24; Start 09/26/16 at 21:45; Stop at 21:44 Sodium Chloride 1,000 ml @ 1,000 mls/hr Q1H IV Last administered on 09/26/16 21:41; Start 09/26/16 at 22:00; Stop 09/26/16 at 22:59; Status DC Ondansetron HCl (Zofran) 4 mg 1X ONCE IV Last administered on 09/26/16 21:43 ; Start 09/26/16 at 22:00; Stop 09/26/16 at 22:01; Status DC Iohexol (Omnipaque 300 Mg/ml) 75 ml 1X ONCE IV Last administered on 09/26/16 22:29; Start 09/26/16 at 23:00; Stop 09/26/16 at 23:01; Status DC Info (Do NOT chart on this entry -- for MONITORING) 1 each PRN DAILY PRN MC SEE COMMENTS; Start 09/26/16 at 22:30; Stop 09/28/16 at 22:29 Sodium Chloride 1,000 ml @ 1,000 mls/hr 1X ONCE IV Last administered on 23:20; Start 09/26/16 at 23:30; Stop 09/27/16 at 00:29; Status DC Ondansetron HCl (Zofran) 4 mg PRN Q8HRS PRN IV NAUSEA/VOMITING Last administered on 09/27/16 06:17; Start 09/26/16 at 23:15; Stop 09/27/16 at 23:14 Morphine Sulfate 4 mg PRN Q2HR PRN IV SEVERE PAIN Last administered on 12:28; Start 09/26/16 at 23:15; Stop 09/27/16 at 23:14 Sodium Chloride 1,000 ml @ 150 mls/hr Q6H40M IV Last administered on 06:17; Start 09/26/16 at 23:09; Stop 09/27/16 at 23:08 Acetaminophen (Tylenol) 650 mg PRN Q4HRS PRN PO FEVER; Start 09/26/16 at 23:15 ; Stop 09/27/16 at 23:14 Cefazolin Sodium/ Dextrose 50 ml @ 100 mls/hr PREOP PRN PRN IV PREOP; Start at 23:45; Stop 09/27/16 at 23:44 Ondansetron HCl (Zofran) 4 mg PRN Q6HRS PRN IV NAUSEA/VOMITING; Start 09/27/16 at 07:30; Stop 09/28/16 at 07:29 Fentanyl Citrate (Fentanyl 2ml Vial) 25 mcg PRN Q5MIN PRN IV MILD PAIN; Start 09/27/16 at 07:30; Stop 09/28/16 at 07:29 Fentanyl Citrate (Fentanyl 2ml Vial) 50 mcg PRN Q5MIN PRN IV MODERATE PAIN; Start 09/27/16 at 07:30; Stop 09/28/16 at 07:29 Morphine Sulfate 1 mg PRN Q10MIN PRN IV SEVERE PAIN; Start 09/27/16 at 07:30; Stop 09/28/16 at 07:29 Ringer's Solution 1,000 ml @ 30 mls/hr Q24H IV ; Start 09/27/16 at 07:27; Stop 09/27/16 at 19:26 Lidocaine HCl 2 ml PRN 1X PRN ID PRIOR TO IV START; Start 09/27/16 at 07:30; Stop 09/28/16 at 07:29 Hydromorphone HCl (Dilaudid) 0.5 mg PRN Q10MIN PRN IV SEV PAIN, Second choice; Start 09/27/16 at 07:30; Stop 09/28/16 at 07:29 Prochlorperazine Edisylate (Compazine) 5 mg PACU PRN PRN IV NAUSEA, MRX1; Start 09/27/16 at 07:30; Stop 09/28/16 at 07:29 Insulin Aspart (NovoLOG) 0-9 UNITS TIDWMEALS SQ Last administered on 09/27/16t 12:12; Start 09/27/16 at 12:00 Dextrose (Dextrose 50%-Water Syringe) 12.5 gm PRN Q15MIN PRN IV SEE COMMENTS; Start 09/27/16 at 10:00 Bupivacaine HCl/ Epinephrine Bitart (Marcaine-Epi 0.25%-1:[id number]) 50 ml STK-MED ONCE .ROUTE ; Start 09/27/16 at 10:51; Stop 09/27/16 at 10:52; Status DC Active Scripts Active Reported Zoloft (Sertraline Hcl) 100 Mg Tablet 100 Mg PO DAILY Metformin Hcl 500 Mg Tablet 500 Mg PO BIDWMEALS Lantus (Insulin Glargine,Hum.rec.anlog) 100 Unit/1 Ml Vial 30 Unit SQ Novolog (Insulin Aspart) 100 Unit/1 Ml Cartridge 0-60 Unit SQ TIDAC Allergies Allergies: Coded Allergies: No Known Drug Allergies (Unverified , 06/16/16) ROS Gastrointestinal: Yes Nausea, Yes Vomiting, Yes Abdominal Pain Physical Exam General: Alert, Oriented X3, Cooperative, mild distress HEENT: Atraumatic, PERRLA, EOMI Lungs: Clear to auscultation, Normal air movement Heart: Regular rate, No murmurs Abdomen: Normal bowel sounds, Soft, Other (TTP at umbilicus) Extremities: No clubbing, No cyanosis, No edema Skin: No significant lesion Neuro: Normal speech Psych/Mental Status: Mental status NL Vitals VITALS Vital Signs Date Time Temp Pulse Resp B/P (MAP) Pulse Ox O2 Delivery O2 Flow Rate FiO2 09/27/16 11:00 98.6 92 20 115/78 (90) 90 Room Air 98.6 Labs Labs Laboratory Tests Test 09/26/16 20:13 09/26/16 20:51 09/26/16 21:00 5/26/17 00:02 Bedside Urine HCG, Qualitative Hcg negative (Negative) Urine Collection Type Unknown Urine Color Yellow Urine Clarity Clear Urine pH 5.5 Urine Specific [place] 1.025 Urine Protein Negative mg/dL (NEG-TRACE) Urine Glucose (UA) >=1000 mg/dL (NEG) Urine Ketones (Stick) Negative mg/dL (NEG) Urine Blood Negative (NEG) Urine Nitrite Negative (NEG) Urine Bilirubin Negative (NEG) Urine Urobilinogen Dipstick 0.2 mg/dL (0.2 mg/dL) Urine Leukocyte Esterase Negative (NEG) Urine RBC 0 /HPF (0-2) Urine WBC 0 /HPF (0-4) Urine Squamous Epithelial Cells Few /LPF Urine Bacteria 0 /HPF (0-FEW) White Blood Count 9.4 x10^3/uL (4.0-11.0) Red Blood Count 4.77 x10^6/uL (3.50-5.40) Hemoglobin 15.0 g/dL (12.0-15.5) Hematocrit 43.9 % (36.0-47.0) Mean Corpuscular Volume 92 fL (79-100) Mean Corpuscular Hemoglobin 32 pg (25-35) Mean Corpuscular Hemoglobin Concent 34 g/dL (31-37) Red Cell Distribution Width 13.3 % (11.5-14.5) Platelet Count 158 x10^3/uL (140-400) Neutrophils (%) (Auto) 73 % (31-73) Lymphocytes (%) (Auto) 21 % (24-48) Monocytes (%) (Auto) 5 % (0-9) Eosinophils (%) (Auto) 1 % (0-3) Basophils (%) (Auto) 0 % (0-3) Neutrophils # (Auto) 6.8 x10^3uL (1.8-7.7) Lymphocytes # (Auto) 2.0 x10^3/uL (1.0-4.8) Monocytes # (Auto) 0.5 x10^3/uL (0.0-1.1) Eosinophils # (Auto) 0.1 x10^3/uL (0.0-0.7) Basophils # (Auto) 0.0 x10^3/uL (0.0-0.2) Sodium Level 133 mmol/L (136-145) Potassium Level 3.5 mmol/L (3.5-5.1) Chloride Level 95 mmol/L (98-107) Carbon Dioxide Level 25 mmol/L (21-32) Anion Gap 13 (6-14) Blood Urea Nitrogen 11 mg/dL (7-20) Creatinine 0.7 mg/dL (0.6-1.0) Estimated GFR (Cockcroft-Gault) 94.7 Glucose Level 322 mg/dL (70-99) Lactic Acid Level 2.5 mmol/L (0.4-2.0) Calcium Level 9.2 mg/dL (8.5-10.1) Total Bilirubin 0.6 mg/dL (0.2-1.0) Direct Bilirubin 0.1 mg/dL (0.0-0.2) Aspartate Amino Transf (AST/SGOT) 43 U/L (15-37) Alanine Aminotransferase (ALT/SGPT) 65 U/L (14-59) Alkaline Phosphatase 86 U/L (46-116) Total Protein 8.6 g/dL (6.4-8.2) Albumin 4.0 g/dL (3.4-5.0) Lipase 466 U/L (73-393) Glucose (Fingerstick) 293 mg/dL (70-99) Test 09/27/16 07:34 09/27/16 11:59 Glucose (Fingerstick) 227 mg/dL (70-99) 225 mg/dL (70-99) Laboratory Tests Test 09/26/16 20:13 09/26/16 20:51 09/26/16 21:00 09/27/16 00:02 Bedside Urine HCG, Qualitative Hcg negative (Negative) Urine Collection Type Unknown Urine Color Yellow Urine Clarity Clear Urine pH 5.5 Urine Specific [place] 1.025 Urine Protein Negative mg/dL (NEG-TRACE) Urine Glucose (UA) >=1000 mg/dL (NEG) Urine Ketones (Stick) Negative mg/dL (NEG) Urine Blood Negative (NEG) Urine Nitrite Negative (NEG) Urine Bilirubin Negative (NEG) Urine Urobilinogen Dipstick 0.2 mg/dL (0.2 mg/dL) Urine Leukocyte Esterase Negative (NEG) Urine RBC 0 /HPF (0-2) Urine WBC 0 /HPF (0-4) Urine Squamous Epithelial Cells Few /LPF Urine Bacteria 0 /HPF (0-FEW) White Blood Count 9.4 x10^3/uL (4.0-11.0) Red Blood Count 4.77 x10^6/uL (3.50-5.40) Hemoglobin 15.0 g/dL (12.0-15.5) Hematocrit 43.9 % (36.0-47.0) Mean Corpuscular Volume 92 fL (79-100) Mean Corpuscular Hemoglobin 32 pg (25-35) Mean Corpuscular Hemoglobin Concent 34 g/dL (31-37) Red Cell Distribution Width 13.3 % (11.5-14.5) Platelet Count 158 x10^3/uL (140-400) Neutrophils (%) (Auto) 73 % (31-73) Lymphocytes (%) (Auto) 21 % (24-48) Monocytes (%) (Auto) 5 % (0-9) Eosinophils (%) (Auto) 1 % (0-3) Basophils (%) (Auto) 0 % (0-3) Neutrophils # (Auto) 6.8 x10^3uL (1.8-7.7) Lymphocytes # (Auto) 2.0 x10^3/uL (1.0-4.8) Monocytes # (Auto) 0.5 x10^3/uL (0.0-1.1) Eosinophils # (Auto) 0.1 x10^3/uL (0.0-0.7) Basophils # (Auto) 0.0 x10^3/uL (0.0-0.2) Sodium Level 133 mmol/L (136-145) Potassium Level 3.5 mmol/L (3.5-5.1) Chloride Level 95 mmol/L (98-107) Carbon Dioxide Level 25 mmol/L (21-32) Anion Gap 13 (6-14) Blood Urea Nitrogen 11 mg/dL (7-20) Creatinine 0.7 mg/dL (0.6-1.0) Estimated GFR (Cockcroft-Gault) 94.7 Glucose Level 322 mg/dL (70-99) Lactic Acid Level 2.5 mmol/L (0.4-2.0) Calcium Level 9.2 mg/dL (8.5-10.1) Total Bilirubin 0.6 mg/dL (0.2-1.0) Direct Bilirubin 0.1 mg/dL (0.0-0.2) Aspartate Amino Transf (AST/SGOT) 43 U/L (15-37) Alanine Aminotransferase (ALT/SGPT) 65 U/L (14-59) Alkaline Phosphatase 86 U/L (46-116) Total Protein 8.6 g/dL (6.4-8.2) Albumin 4.0 g/dL (3.4-5.0) Lipase 466 U/L (73-393) Glucose (Fingerstick) 293 mg/dL (70-99) Test 09/27/16 07:34 09/27/16 11:59 Glucose (Fingerstick) 227 mg/dL (70-99) 225 mg/dL (70-99) Images Images CT scan showed ventral hernia with incarcerated omentum, no bowel involved Assessment/Plan Assessment/Plan Incarcerated ventral hernia Plan repair. JIE GERONIMO MD September 27, 2016 13:31
[2016-09-27] MEDS ORDERED: LIDOCAINE 2% PF Vial for OR 5 ML VIAL. ONE (13:51)
[2016-09-27] MEDS ORDERED: MIDAZOLAM HCL/PF 2 MG/2 ML VIAL. ONE (13:51)
[2016-09-27] MEDS ORDERED: SUCCINYLCHOLINE 200 MG/10 ML VIAL. ONE (13:51)
[2016-09-27] MEDS ORDERED: ONDANSETRON PF 4 MG/2 ML VIAL. ONE (13:51)
[2016-09-27] MEDS ORDERED: fentaNYL PF VIAL 100 MCG/2 ML VIAL ONE (13:51)
[2016-09-27] MEDS ORDERED: DESFLURANE 61 TO 120 MINUTES IH ONE (13:51)
[2016-09-27] MEDS ORDERED: PROPOFOL 20 ML IV ONE (13:51)
[2016-09-27] MEDS ORDERED: ROCURONIUM 50 MG/5 ML VIAL. ONE (13:51)
[2016-09-27] MEDS ORDERED: DEXAMETHASONE SOD PHOS 20 MG/5 ML VIAL. ONE (13:51)
[2016-09-27] MEDS ORDERED: PHENYLEPHRINE in 0.9% NACL PF 1 MG/10 ML DISP.SYRIN. IV ONE (14:22)
--- NOTE | 2016-09-27 14:46 | PDOC ---
BRIEF OPERATIVE NOTE Date: September 27, 2016 Pre-Op Diagnosis Incarcerated ventral hernia Post-Op Diagnosis Same Procedure Performed ventral hernia repair Surgeon Thiago Anesthesia Type: General Blood Loss 5ml Specimens Obtained Hernia sac Findings as above Complications None JIE GERONIMO MD September 27, 2016 14:46
--- NOTE | 2016-09-27 14:49 | DISCH ---
DISCHARGE INSTRUCTIONS Condition on Discharge Condition on Discharge: Stable Activity After Discharge Activity Instructions for Disc: Avoid exertion Other activity instructions: No lifting >20lbs for 2 weeks Diet after Discharge Diet after Discharge: Diabetic No Calorie Level Wound Incision Care Other wound/incision instructi: Samantha shower in 24 hours Contacting the after DC Call your doctor for: If your condition worsens Follow-Up Follow up with: Dr Geronimo in 2 weeks JIE GERONIMO MD September 27, 2016 14:49
[2016-09-27] MEDS ORDERED: ePHEDrine PF IN SALINE 50 MG/5 ML DISP.SYRIN IV ONE (14:52)
[2016-09-27] MEDS ORDERED: oxyCODONE/APAP 5/325 1 TAB TABLET PO PRN (15:00)
--- NOTE | 2016-09-27 15:57 | OP ---
DATE OF SURGERY: 09/27/2016 PREOPERATIVE DIAGNOSIS: Incarcerated ventral hernia. POSTOPERATIVE DIAGNOSIS: Incarcerated ventral hernia. PROCEDURE: Repair of ventral hernia. SURGEON: Joey Geronimo MD INDICATIONS: The patient is a 36-year-old female who was admitted to the hospital with acute abdominal pain. The CT scan is showing a small ventral hernia with incarcerated omentum. Procedure of ventral hernia repair was explained to the patient in detail. Risks, benefits were also discussed including bleeding and infection. Alternatives of this procedure were also discussed with the patient seemed to understand and gave verbal and written consent to have the procedure performed. DESCRIPTION OF PROCEDURE: The patient was taken to the operating room and placed in the supine position, general anesthesia was initiated. Once the patient was asleep and intubated, her abdomen was prepped and draped in usual sterile fashion using ChloraPrep. An area around the umbilicus was injected 0.25% Marcaine with epinephrine. A midline incision was made from just above the umbilicus to the umbilicus, was carried down through the subcutaneous tissue with electrocautery for hemostasis. The hernia sac was encountered. Adherent tissues to the hernia sac were taken down to the fascia. The hernia sac was then opened and excised. There was omentum within the hernia sac. This was reduced to the end side of the abdomen and the fascial defect was closed with a [id number] 0 PDS suture. The deep subcutaneous layer was closed with running 3-0 Vicryl and the skin was reapproximated with 4-0 subcuticular Monocryl. Mastisol, Steri-Strips and ____ dressing were applied. The patient was awakened, extubated in the operating room, taken to recovery in stable condition. All sponge, instrument counts listed as correct. Estimated blood loss 5 mL. JOEY GERONIMO MD DR: ALBA/jamaal JOB#: [id number] / [id number]
[2016-09-27] MEDS: MORPHINE SULFATE 2 MG/ML DISP.SYRIN. IV PRN ×2 (16:28→16:40)
[2016-09-28] MEDS: IV NORMAL SALINE 1000ML BAG 1,000 ML IV SCH (00:51)
[2016-09-28] MEDS: oxyCODONE/APAP 5/325 1 TAB TABLET PO PRN ×3 (01:30→09:38)
[2016-09-28 03:20] VITALS: BP 130/88
[2016-09-28 07:00] VITALS: BP 120/73
[2016-09-28] MEDS: INSULIN ASPART 300 UNITS/3 ML INSULN.PEN SQ SCH (08:09)
--- NOTE | 2016-09-28 08:48 | PDOC ---
SURGICAL PROGRESS NOTE Subjective Doing well Vital Signs Vital Signs Date Time Temp Pulse Resp B/P (MAP) Pulse Ox O2 Delivery O2 Flow Rate FiO2 09/28/16 07:20 Room Air 09/28/16 07:00 98.5 91 20 120/73 (89) 95 98.5 09/28/16 06:43 2.0 I&O Intake and Output 09/28/16 07:00 Intake Total 5050 ml Output Total 3105 ml Balance 1945 ml Intake Oral 1250 ml IV Total 2000 ml Other 1800 ml Output Urine Total 3100 ml Estimated Blood Loss 5 ml PATIENT HAS A RICARDO: No General: Alert, Oriented X3, Cooperative, No acute distress Abdomen: Normal bowel sounds, Soft, Other (mild incisional tenderness, wound C/ D/I) Labs Laboratory Tests Test 09/26/16 20:13 09/26/16 20:51 09/26/16 21:00 09/27/16 00:02 Bedside Urine HCG, Qualitative Hcg negative (Negative) Urine Collection Type Unknown Urine Color Yellow Urine Clarity Clear Urine pH 5.5 Urine Specific [place] 1.025 Urine Protein Negative mg/dL (NEG-TRACE) Urine Glucose (UA) >=1000 mg/dL (NEG) Urine Ketones (Stick) Negative mg/dL (NEG) Urine Blood Negative (NEG) Urine Nitrite Negative (NEG) Urine Bilirubin Negative (NEG) Urine Urobilinogen Dipstick 0.2 mg/dL (0.2 mg/dL) Urine Leukocyte Esterase Negative (NEG) Urine RBC 0 /HPF (0-2) Urine WBC 0 /HPF (0-4) Urine Squamous Epithelial Cells Few /LPF Urine Bacteria 0 /HPF (0-FEW) White Blood Count 9.4 x10^3/uL (4.0-11.0) Red Blood Count 4.77 x10^6/uL (3.50-5.40) Hemoglobin 15.0 g/dL (12.0-15.5) Hematocrit 43.9 % (36.0-47.0) Mean Corpuscular Volume 92 fL (79-100) Mean Corpuscular Hemoglobin 32 pg (25-35) Mean Corpuscular Hemoglobin Concent 34 g/dL (31-37) Red Cell Distribution Width 13.3 % (11.5-14.5) Platelet Count 158 x10^3/uL (140-400) Neutrophils (%) (Auto) 73 % (31-73) Lymphocytes (%) (Auto) 21 % (24-48) Monocytes (%) (Auto) 5 % (0-9) Eosinophils (%) (Auto) 1 % (0-3) Basophils (%) (Auto) 0 % (0-3) Neutrophils # (Auto) 6.8 x10^3uL (1.8-7.7) Lymphocytes # (Auto) 2.0 x10^3/uL (1.0-4.8) Monocytes # (Auto) 0.5 x10^3/uL (0.0-1.1) Eosinophils # (Auto) 0.1 x10^3/uL (0.0-0.7) Basophils # (Auto) 0.0 x10^3/uL (0.0-0.2) Sodium Level 133 mmol/L (136-145) Potassium Level 3.5 mmol/L (3.5-5.1) Chloride Level 95 mmol/L (98-107) Carbon Dioxide Level 25 mmol/L (21-32) Anion Gap 13 (6-14) Blood Urea Nitrogen 11 mg/dL (7-20) Creatinine 0.7 mg/dL (0.6-1.0) Estimated GFR (Cockcroft-Gault) 94.7 Glucose Level 322 mg/dL (70-99) Lactic Acid Level 2.5 mmol/L (0.4-2.0) Calcium Level 9.2 mg/dL (8.5-10.1) Total Bilirubin 0.6 mg/dL (0.2-1.0) Direct Bilirubin 0.1 mg/dL (0.0-0.2) Aspartate Amino Transf (AST/SGOT) 43 U/L (15-37) Alanine Aminotransferase (ALT/SGPT) 65 U/L (14-59) Alkaline Phosphatase 86 U/L (46-116) Total Protein 8.6 g/dL (6.4-8.2) Albumin 4.0 g/dL (3.4-5.0) Lipase 466 U/L (73-393) Glucose (Fingerstick) 293 mg/dL (70-99) Test 09/27/16 07:34 09/27/16 11:59 09/27/16 16:19 09/27/16 16:57 Glucose (Fingerstick) 227 mg/dL (70-99) 225 mg/dL (70-99) 284 mg/dL (70-99) 330 mg/dL (70-99) Test 09/27/16 21:03 09/28/16 07:29 Glucose (Fingerstick) 289 mg/dL (70-99) 239 mg/dL (70-99) Laboratory Tests Test 09/27/16 11:59 09/27/16 16:19 09/27/16 16:57 09/27/16 21:03 Glucose (Fingerstick) 225 mg/dL (70-99) 284 mg/dL (70-99) 330 mg/dL (70-99) 289 mg/dL (70-99) Test 09/28/16 07:29 Glucose (Fingerstick) 239 mg/dL (70-99) Problem List Problems Medical Problems: (1) Incarcerated umbilical hernia Status: Acute Assessment/Plan S/P repair of incarcerated hernia OK to D/C home from surgical stand point F/U in 2 weeks, no lifting >20lbs for 2 weeks, one week off work Problems: JIE GERONIMO MD September 28, 2016 08:48
--- NOTE | 2016-10-03 15:40 | PATHOLOGY ---
PATHOLOGY REPORT * * * * * * * * FINAL DIAGNOSIS: Segment of focal mesothelial-lined fibromembranous and fibroadipose tissue, umbilical hernia repair: - Hernia sac. REPORT ELECTRONICALLY SIGNED BY: Bruce Salter M.D. DATE/TIME: 10/03/2016 15:39 * * * * * * * * GROSS PATHOLOGY: Received in formalin labeled "Lizzie Davies, hernia sac," is a piece of fibroadipose tissue measuring 3.9 x 1.8 x 1.0 cm. No nodules or lesions are identified. [place] Carrier tissue is submitted in cassette A1. (CAA; 10/02/2016) INITIAL CPT CODE(S): A; 76914 Professional services performed by [facility] [place] [address] Technical services performed by [facility] at [address] [place] [address], [address], [place] [address]. SPECIMEN(S) RECEIVED: A.Hernia sac CLINICAL HISTORY: Incarcerated umbilical hernia PATIENT: LIZZIE DAVIES /AGE: 5 1980 (Age: 36) PATIENT #: [id number] ALT CASE #: SPECIMEN COLLECTION DATE: 09/27/2016 SPECIMEN RECEIVED DATE: 10/01/2016 [facility] - [address] [place] [address] - PHONE: [phone] * * * END OF REPORT * * *
--- NOTE | 2016-10-05 22:23 | DS ---
DATE OF DISCHARGE: 09/28/2016 ADMISSION DIAGNOSIS: Umbilical hernia. DISCHARGE DIAGNOSIS: Postoperative umbilical hernia repair. HOSPITAL COURSE: The patient is a pleasant 36-year-old female who presented with umbilical hernia. She was admitted. We consulted General Surgery. She was taken for repair. Post-procedure, she did well. We discharged to home. DISPOSITION: Home. ACTIVITY: As tolerated. DIET: Low sodium. MEDICATIONS: Please see the MRAD. TOTAL TIME: 36 minutes. EMILEE SPAIN DO DR: MARIA DEL CARMEN/jamaal JOB#: [id number] / [id number]
== END 2016-09-28 10:50 | disposition home or self-care (01) | DRG 355 ==
LOC: ER 20:13 → 4 NORTH 23:00
PROVIDERS: ADMIT Internal Medicine; ATTEND Internal Medicine
PROC: 0WQF0ZZ Repair Abdominal Wall, Open Approach (ICD-10-PCS; principal; 2016-09-27 14:00)
DX: K42.0 Umbilical hernia with obstruction, without gangrene (principal); K76.0 Fatty (change of) liver, not elsewhere classified; K43.6 Other and unspecified ventral hernia with obstruction, without gangrene; E87.6 Hypokalemia; E11.9 Type 2 diabetes mellitus without complications; J45.909 Unspecified asthma, uncomplicated; E66.3 Overweight; Z90.710 Acquired absence of both cervix and uterus; Z79.899 Other long term (current) drug therapy; Z68.35 Body mass index [BMI] 35.0-35.9, adult; Z79.1 Long term (current) use of non-steroidal anti-inflammatories (NSAID); Z79.4 Long term (current) use of insulin
CPT/HCPCS: 36415; 74177; 80048; 80076; 81001; 81025; 82962; 83605; 83690; 85027; 88302; 96361; 96374; 96375; 96376; A4215; J0330; J0690; J1100; J1815; J2250; J2270; J2370; J2405; J2704; J3010; J7030; Q9967; 99285-25

== ENCOUNTER 2016-12-18 11:39 | Emergency (ER) | payer SELFPAY ==
[~2016-12-18] VITALS: Ht 147.3 cm; Wt 79.4 kg
[~2016-12-18 11:39] MED LIST changes: +METF500T4 PO; +SERT100T PO
[2016-12-18] MEDS ORDERED: MORPHINE SULFATE 10 MG/ML VIAL. IV ONE (12:00)
[2016-12-18] MEDS ORDERED: IV NORMAL SALINE 1000ML BAG 1,000 ML IV ONE (12:00)
[2016-12-18] MEDS ORDERED: ONDANSETRON PF 4 MG/2 ML VIAL. IV ONE (12:00)
[2016-12-18 12:13] LABS: BILIRUBIN,URINE NEGATIVE (NEG); GLUCOSE,URINE >=1000 mg/dL (NEG); NITRITE,URINE NEGATIVE (NEG); PH,URINE 5.5; PROTEIN,URINE 30 mg/dL (NEG-TRACE)
[2016-12-18 12:25] LABS: BACTERIA,URINE 0 /HPF (0-FEW); RBC,URINE 0 /HPF (0-2); YEAST,URINE PRESENT /HPF
[2016-12-18 12:26] LABS: SQUAMOUS EPITHELIAL CELL,UR FEW /LPF; WBC,URINE OCC /HPF (0-4)
--- NOTE | 2016-12-18 12:26 | RAD ---
Limited right upper quadrant abdominal ultrasound 12/18/2016 at 1201 hours Indication: Right upper quadrant abdominal pain Comparison: Abdomen/pelvis CT 09/26/2016 Technique: Multiple sonographic images of the abdomen were performed utilizing grayscale and color Doppler. Findings: There is increased echogenicity of the hepatic parenchyma compatible with diffuse hepatocellular disease, most commonly hepatic steatosis. This limits evaluation for a right hepatic masses. Liver measures 20.5 cm in length. The gallbladder is normal in appearance. No gallstones, pericholecystic fluid or gallbladder wall thickening. The right kidney measures 11.9 x 4.9 x 5.0 cm. There is no hydronephrosis or renal calculi. No solid or cystic renal mass. Pancreas is obscured and poorly visualized. IVC is poorly visualized. No free fluid in the right upper quadrant. Impression: 1. Hepatomegaly with increased echogenicity of the hepatic parenchyma is compatible with diffuse hepatocellular disease, most commonly hepatic steatosis. This limits evaluation for underlying masses. 2. No evidence for cholelithiasis.
[2016-12-18 12:33] LABS: BASO # 0.1 x10^3/uL (0.0-0.2); BASO % 1 % (0-3); EOS % 1 % (0-3); HEMATOCRIT 42.8 % (36.0-47.0); HEMOGLOBIN 14.7 g/dL (12.0-15.5); LYMPH # 2.9 x10^3/uL (1.0-4.8); LYMPH % 26 % (24-48); MEAN CORPUSCULAR HEMOGLOBIN 31 pg (25-35); MEAN CORPUSCULAR HGB CONC 35 g/dL (31-37); MEAN CORPUSCULAR VOLUME 90 fL (79-100); MONO % 5 % (0-9); NEUT % 68 % (31-73); PLATELET COUNT 147 x10^3/uL (140-400); RED BLOOD COUNT 4.75 x10^6/uL (3.50-5.40); RED CELL DISTRIBUTION WIDTH 13.5 % (11.5-14.5); WHITE BLOOD COUNT 11.2 x10^3/uL (4.0-11.0)
[2016-12-18 12:52] LABS: CALCIUM 8.6 mg/dL (8.5-10.1); CREATININE 0.6 mg/dL (0.6-1.0); GFR 113.1; POTASSIUM 3.8 mmol/L (3.5-5.1)
[2016-12-18 13:05] LABS: ALBUMIN 3.6 g/dL (3.4-5.0); ALBUMIN/GLOBULIN RATIO 0.9 (1.0-1.7); TOTAL BILIRUBIN 0.7 mg/dL (0.2-1.0); TOTAL PROTEIN 7.6 g/dL (6.4-8.2)
[2016-12-18] MEDS ORDERED: FAMOTIDINE 20 MG TABLET. PO ONE (13:15)
[2016-12-18] MEDS ORDERED: LIDO:MAALOX:DONNATAL 1:1:1 15 ML SINGLE DOSE SWSW ONE (13:15)
[2016-12-18] MEDS ORDERED: fentaNYL PF VIAL 100 MCG/2 ML VIAL IV ONE (13:15)
--- NOTE | 2016-12-18 14:14 | PHYS DOC ---
Past Medical History Past Medical History: Diabetes-Type II Past Surgical History: , Hysterectomy Additional Past Surgical Histo: D&C, Ablation, hernia repair Alcohol Use: None Drug Use: None Adult General Chief Complaint Chief Complaint: ABDOMINAL PAIN HPI HPI Patient is a 36 year old female presenting to the emergency department for evaluation of epigastric and right upper quadrant pain that has been going on for 2 days and has persisted. It is sharp and burning and can cause her nausea but no fevers chills dysuria hematuria vomiting diarrhea constipation vaginal bleeding or vaginal discharge. Patient denies having any prior abdominal surgeries and she is in no obvious distress with normal vital signs. Review of Systems Review of Systems Constitutional: Denies fever or chills [] Respiratory: Denies cough or shortness of breath [] Cardiovascular: No additional information not addressed in HPI [] GI:+ abdominal pain, nausea. No vomiting, bloody stools or diarrhea [] Musculoskeletal: Denies back pain or joint pain [] Integument: Denies rash or skin lesions [] Neurologic: Denies headache, focal weakness or sensory changes [] Current Medications Current Medications Current Medications Medications (Trade) Dose Ordered Sig/Michael Start Time Stop Time Status Last Admin Dose Admin Famotidine (Pepcid) 20 mg 1X ONCE 12/18/16 13:15 12/18/16 13:19 DC 12/18/16 13:55 20 MG Fentanyl Citrate (Fentanyl 2ml Vial) 100 mcg 1X ONCE 12/18/16 13:15 12/18/16 13:19 DC 12/18/16 13:58 100 MCG Morphine Sulfate 5 mg 1X ONCE 12/18/16 12:00 12/18/16 12:01 DC 12/18/16 12:34 5 MG Multi-Ingredient Mouthwash/Gargle (Gi Cocktail Single Dose) 15 ml 1X ONCE 12/18/16 13:15 12/18/16 13:19 DC 12/18/16 13:56 15 ML Ondansetron HCl (Zofran) 8 mg 1X ONCE 12/18/16 12:00 12/18/16 12:01 DC 12/18/16 12:36 8 MG Sodium Chloride 1,000 ml @ 1,000 mls/hr 1X ONCE 12/18/16 12:00 12/18/16 12:59 DC 12/18/16 12:36 1,000 MLS/HR Allergies Allergies Allergies Coded Allergies Type Severity Reaction Last Updated Verified No Known Drug Allergies 06/16/16 No Physical Exam Physical Exam Constitutional: Well developed, well nourished, no acute distress, non-toxic appearance. [] Neck: Normal range of motion, no tenderness, supple, no stridor. [] Cardiovascular:Heart rate regular rhythm, no murmur [] Lungs & Thorax: Bilateral breath sounds clear to auscultation [] Abdomen: Bowel sounds normal, soft, primarily epigastric tenderness, no rebound or guarding, no masses, no pulsatile masses. [] Skin: Warm, dry, no erythema, no rash. [] Back: No tenderness, no CVA tenderness. [] Current Patient Data Vital Signs Vital Signs Date Time Temp Pulse Resp B/P (MAP) Pulse Ox O2 Delivery O2 Flow Rate FiO2 12/18/16 13:58 18 97 Room Air 12/18/16 11:48 99.2 86 168/101 (123) 99.2 Lab Values Laboratory Tests Test 12/18/16 12:00 12/18/16 12:20 Urine Collection Type Unknown Urine Color Yellow Urine Clarity Clear Urine pH 5.5 Urine Specific [place] >=1.030 Urine Protein 30 mg/dL (NEG-TRACE) Urine Glucose (UA) >=1000 mg/dL (NEG) Urine Ketones (Stick) 15 mg/dL (NEG) Urine Blood Negative (NEG) Urine Nitrite Negative (NEG) Urine Bilirubin Negative (NEG) Urine Urobilinogen Dipstick 1.0 mg/dL (0.2 mg/dL) Urine Leukocyte Esterase Negative (NEG) Urine RBC 0 /HPF (0-2) Urine WBC Occ /HPF (0-4) Urine Squamous Epithelial Cells Few /LPF Urine Bacteria 0 /HPF (0-FEW) Urine Yeast Present /HPF White Blood Count 11.2 x10^3/uL (4.0-11.0) H Red Blood Count 4.75 x10^6/uL (3.50-5.40) Hemoglobin 14.7 g/dL (12.0-15.5) Hematocrit 42.8 % (36.0-47.0) Mean Corpuscular Volume 90 fL (79-100) Mean Corpuscular Hemoglobin 31 pg (25-35) Mean Corpuscular Hemoglobin Concent 35 g/dL (31-37) Red Cell Distribution Width 13.5 % (11.5-14.5) Platelet Count 147 x10^3/uL (140-400) Neutrophils (%) (Auto) 68 % (31-73) Lymphocytes (%) (Auto) 26 % (24-48) Monocytes (%) (Auto) 5 % (0-9) Eosinophils (%) (Auto) 1 % (0-3) Basophils (%) (Auto) 1 % (0-3) Neutrophils # (Auto) 7.6 x10^3uL (1.8-7.7) Lymphocytes # (Auto) 2.9 x10^3/uL (1.0-4.8) Monocytes # (Auto) 0.6 x10^3/uL (0.0-1.1) Eosinophils # (Auto) 0.1 x10^3/uL (0.0-0.7) Basophils # (Auto) 0.1 x10^3/uL (0.0-0.2) Sodium Level 135 mmol/L (136-145) L Potassium Level 3.8 mmol/L (3.5-5.1) Chloride Level 98 mmol/L (98-107) Carbon Dioxide Level 23 mmol/L (21-32) Anion Gap 14 (6-14) Blood Urea Nitrogen 11 mg/dL (7-20) Creatinine 0.6 mg/dL (0.6-1.0) Estimated GFR (Cockcroft-Gault) 113.1 BUN/Creatinine Ratio 18 (6-20) Glucose Level 239 mg/dL (70-99) H Calcium Level 8.6 mg/dL (8.5-10.1) Total Bilirubin 0.7 mg/dL (0.2-1.0) Aspartate Amino Transferase (AST) 44 U/L (15-37) H Alanine Aminotransferase (ALT) 54 U/L (14-59) Alkaline Phosphatase 82 U/L (46-116) Total Protein 7.6 g/dL (6.4-8.2) Albumin 3.6 g/dL (3.4-5.0) Albumin/Globulin Ratio 0.9 (1.0-1.7) L Lipase 145 U/L (73-393) Laboratory Tests 12/18/16 12:20 Laboratory Tests 12/18/16 12:20 EKG EKG [] Radiology/Procedures Radiology/Procedures Limited right upper quadrant abdominal ultrasound 12/18/2016 at 1201 hours Indication: Right upper quadrant abdominal pain Comparison: Abdomen/pelvis CT 09/26/2016 Technique: Multiple sonographic images of the abdomen were performed utilizing grayscale and color Doppler. Findings: There is increased echogenicity of the hepatic parenchyma compatible with diffuse hepatocellular disease, most commonly hepatic steatosis. This limits evaluation for a right hepatic masses. Liver measures 20.5 cm in length. The gallbladder is normal in appearance. No gallstones, pericholecystic fluid or gallbladder wall thickening. The right kidney measures 11.9 x 4.9 x 5.0 cm. There is no hydronephrosis or renal calculi. No solid or cystic renal mass. Pancreas is obscured and poorly visualized. IVC is poorly visualized. No free fluid in the right upper quadrant. Impression: 1. Hepatomegaly with increased echogenicity of the hepatic parenchyma is compatible with diffuse hepatocellular disease, most commonly hepatic steatosis. This limits evaluation for underlying masses. 2. No evidence for cholelithiasis. DICTATED and SIGNED BY: ERI DUBOSE MD DATE: 12/18/16 1221 Course & Med Decision Making Course & Med Decision Making Patient presenting to the emergency for evaluation of epigastric and right upper quadrant pain. Unremarkable and she appears well with repeat benign abdominal exam. Suspect this is likely gastritis or possibly an ulcer so I will discharge her on Prilosec with [place] and Zofran for breakthrough pain and have her follow with a GI physician for intractable symptoms and have her come back to the ER sooner with any new worsening pain fevers vomiting or other general concerns. Aware and agreeable with plan for discharge and verbalized understanding of the need for short-term follow-up in the strict ER return precautions discussed as above. Dragon Disclaimer Dragon Disclaimer This electronic medical record was generated, in whole or in part, using a voice recognition dictation system. Departure Departure Impression: Primary Impression: Abdominal pain Disposition: 01 HOME, SELF-CARE Condition: GOOD Referrals: AMAURY ARREDONDO MD Patient Instructions: Abdominal Pain (Nonspecific) Additional Instructions: TAKE TUMS AND MAALOX FOR BREAKTHROUGH SYMPTOMS. FOLLOW WITH YOUR PCP AND GI. THANK YOU! Scripts Ondansetron (ZOFRAN ODT) 4 Mg Tab.rapdis 4 MG PO BID Y for NAUSEA/VOMITING, #10 TAB Prov: JANE COOPER DO 12/18/16 Hydrocodone/Apap 5-325 (NORCO 5-325 TABLET) 1 Each Tablet 1 TAB PO PRN Q6HRS Y for PAIN, #10 TAB 0 Refills Prov: JANE COOPER DO 12/18/16 Omeprazole Magnesium (PRILOSEC OTC) 20 Mg Tablet. 1 TAB PO DAILY, #30 TAB 2 Refills Prov: JANE COOPER DO 12/18/16 Problem Qualifiers Primary Impression: Abdominal pain Abdominal location: epigastric Qualified Codes: R10.13 - Epigastric pain JANE COOPER DO Dec 18, 2016 14:14
[2016-12-18] MEDS ORDERED: OMEP20TA63 PO (14:17)
[2016-12-18] MEDS ORDERED: HYDR-971 PO (14:17)
[2016-12-18] MEDS ORDERED: ONDA4TAB10 PO (14:17)
[2016-12-18 14:20] VITALS: BP 143/79
== END 2016-12-18 14:40 | disposition home or self-care (01) ==
LOC: ER 11:39
DX: R10.13 Epigastric pain (principal); R10.11 Right upper quadrant pain; R11.0 Nausea; E11.9 Type 2 diabetes mellitus without complications; Z90.710 Acquired absence of both cervix and uterus
CPT/HCPCS: 36415; 76705; 80053; 81001; 83690; 85025; 96361; 96374; 96375; 99285; J2270; J2405; J3010; J7030

== ENCOUNTER 2017-01-27 14:27 | Emergency (ER) | payer SELFPAY ==
[~2017-01-27 14:27] MED LIST changes: +HYDR-971 PO; +OMEP20TA63 PO; +ONDA4TAB10 PO
[2017-01-27 14:48] LABS: BILIRUBIN,URINE NEGATIVE (NEG); GLUCOSE,URINE >=1000 mg/dL (NEG); NITRITE,URINE POSITIVE (NEG); PH,URINE 5.5; PROTEIN,URINE NEGATIVE (NEG-TRACE); UROBILINOGEN,URINE 0.2 mg/dL (0.2 mg/dL)
[2017-01-27] MEDS ORDERED: NAPROXEN 500 MG TABLET PO STA (15:03)
[2017-01-27] MEDS ORDERED: PHENAZOPYRIDINE 200 MG TABLET. PO ONE (15:15)
[2017-01-27 15:16] VITALS: BP 145/74
--- NOTE | 2017-01-27 15:25 | PHYS DOC ---
Past Medical History Past Medical History: Diabetes-Type II Past Surgical History: , Hysterectomy Additional Past Surgical Histo: D&C, Ablation, hernia repair Alcohol Use: None Drug Use: None Adult General Chief Complaint Chief Complaint: BLOOD IN URINE [facility] HPI Patient is a 36 year old female with history of diabetes type 2 who presents today with dysuria and hematuria for one week. Patient denies any fever nausea vomiting. She states she has periumbilical abdominal pain. Review of Systems Review of Systems Constitutional: Denies fever or chills [] Eyes: Denies change in visual acuity, redness, or eye pain [] HENT: Denies nasal congestion or sore throat [] Respiratory: Denies cough or shortness of breath [] Cardiovascular: No additional information not addressed in HPI [] GI: Periumbilical abdominal pain, denies nausea vomiting or diarrhea. : dysuria and hematuria [] Musculoskeletal: Denies back pain or joint pain [] Integument: Denies rash or skin lesions [] Neurologic: Denies headache, focal weakness or sensory changes [] Current Medications Current Medications Current Medications Medications (Trade) Dose Ordered Sig/Michael Start Time Stop Time Status Last Admin Dose Admin Naproxen (Naprosyn) 500 mg 1X STAT 01/27/17 15:03 01/27/17 15:06 DC 01/27/17 15:14 500 MG Phenazopyridine HCl (Pyridium) 200 mg 1X ONCE 01/27/17 15:15 01/27/17 15:16 DC 01/27/17 15:14 200 MG Allergies Allergies Allergies Coded Allergies Type Severity Reaction Last Updated Verified No Known Drug Allergies 06/16/16 No Physical Exam Physical Exam Constitutional: Well developed, well nourished, no acute distress, non-toxic appearance. [] HENT: Normocephalic, atraumatic, bilateral external ears normal, oropharynx moist, no oral exudates, nose normal. [] Eyes: PERRLA, EOMI, conjunctiva normal, no discharge. [] Neck: Normal range of motion, no tenderness, supple, no stridor. [] Cardiovascular:Heart rate regular rhythm, no murmur [] Lungs & Thorax: Bilateral breath sounds clear to auscultation [] Abdomen: Bowel sounds normal, soft, no tenderness, no masses, no pulsatile masses. [] Skin: Warm, dry, no erythema, no rash. [] Back: No tenderness, no CVA tenderness. [] Extremities: No tenderness, no cyanosis, no clubbing, ROM intact, no edema. [] Neurologic: Alert and oriented X 3, normal motor function, normal sensory function, no focal deficits noted. [] Psychologic: Affect normal, judgement normal, mood normal. [] Current Patient Data Vital Signs Vital Signs Date Time Temp Pulse Resp B/P (MAP) Pulse Ox O2 Delivery O2 Flow Rate FiO2 01/27/17 15:16 98.0 90 18 97 Room Air 98.0 Lab Values Laboratory Tests Test 01/27/17 14:31 01/27/17 14:37 Urine Collection Type Unknown Urine Color Yellow Urine Clarity Clear Urine pH 5.5 Urine Specific [place] >=1.030 Urine Protein Negative mg/dL (NEG-TRACE) Urine Glucose (UA) >=1000 mg/dL (NEG) Urine Ketones (Stick) Negative mg/dL (NEG) Urine Blood Trace (NEG) Urine Nitrite Positive (NEG) Urine Bilirubin Negative (NEG) Urine Urobilinogen Dipstick 0.2 mg/dL (0.2 mg/dL) Urine Leukocyte Esterase Negative (NEG) Urine RBC 0 /HPF (0-2) Urine WBC 20-40 /HPF (0-4) Urine Squamous Epithelial Cells Few /LPF Urine Bacteria Few /HPF (0-FEW) Urine Mucus Slight /LPF Urine Sperm Present /HPF POC Urine HCG, Qualitative Hcg negative (Negative) EKG EKG [] Radiology/Procedures Radiology/Procedures [] Course & Med Decision Making Course & Med Decision Making Pertinent Labs and Imaging studies reviewed. (See chart for details) This is a 36-year-old female patient with dysuria and hematuria. Urine positive for UTI. Patient was discharged with Pyridium, Cipro and Ultram. Instructed to push fluids. Follow up with the PCP in 1-2 weeks. Dragon Disclaimer Dragon Disclaimer This electronic medical record was generated, in whole or in part, using a voice recognition dictation system. Departure Departure Impression: Primary Impression: Urinary tract infection Disposition: 01 HOME, SELF-CARE Condition: STABLE Referrals: JANNETH VILLAVICENCIO (PCP) follow up with your doctor in one week Patient Instructions: Urinary Tract Infection Additional Instructions: You were seen for urinary tract infection please complete your antibiotics and push fluids. Follow up with your doctor in one week Scripts Tramadol Hcl (ULTRAM) 50 Mg Tablet 1 TAB PO Q6HRS, #30 TAB Prov: PAIGE CABRERA APRN 01/27/17 Phenazopyridine Hcl (PYRIDIUM) 100 Mg Tablet 100 MG PO TID, #9 TAB Prov: PAIGE CABRERA APRN 01/27/17 Ciprofloxacin Hcl (CIPRO) 500 Mg Tablet 1 TAB PO BID, #14 TAB Prov: PAIGE CABRERA APRN 01/27/17 Problem Qualifiers Primary Impression: Urinary tract infection Urinary tract infection type: acute cystitis Hematuria presence: with hematuria Qualified Codes: N30.01 - Acute cystitis with hematuria PAIGE CABRERA APRN Jan 27, 2017 15:25
[2017-01-27 15:33] LABS: BACTERIA,URINE FEW /HPF (0-FEW); RBC,URINE 0 /HPF (0-2); WBC,URINE 20-40 /HPF (0-4)
[2017-01-27 15:34] LABS: SPERM,URINE PRESENT /HPF; SQUAMOUS EPITHELIAL CELL,UR FEW /LPF
[2017-01-27] MEDS ORDERED: PHEN100T82 PO (15:47)
[2017-01-27] MEDS ORDERED: CIPR500T94 PO (15:47)
[2017-01-27] MEDS ORDERED: TRAM-48 PO (15:47)
== END 2017-01-27 16:01 | disposition home or self-care (01) ==
LOC: ER 14:27
DX: N30.01 Acute cystitis with hematuria (principal); E11.9 Type 2 diabetes mellitus without complications
CPT/HCPCS: 81001; 81025; 99283

== ENCOUNTER 2017-06-02 11:37 | Emergency (ER) | payer SELFPAY ==
[2017-06-02] MEDS: IBUPROFEN 800 MG TABLET. PO ×2 (13:16)
== END 2017-06-02 14:00 | disposition home or self-care (01) ==
LOC: ER 11:37
DX: S20.211A Contusion of right front wall of thorax, initial encounter (principal); E11.9 Type 2 diabetes mellitus without complications; Z90.710 Acquired absence of both cervix and uterus; W10.9XXA Fall (on) (from) unspecified stairs and steps, initial encounter; Y93.E2 Activity, laundry; Y92.89 Other specified places as the place of occurrence of the external cause; Y99.8 Other external cause status
CPT/HCPCS: 71101; 99284-25

== ENCOUNTER 2017-07-15 15:33 | Emergency (ER) | payer SELFPAY ==
[2017-07-15] MEDS: diphenhydrAMINE HCL 25 MG CAPSULE PO (16:42)
[2017-07-15] MEDS: ONDANSETRON ODT 4 MG TAB.RAPDIS. PO (16:42)
[2017-07-15] MEDS: ACETAMINOPHEN 325 MG TABLET. PO (16:43)
[2017-07-15] MEDS: predniSONE 20 MG TABLET PO (16:43)
[2017-07-15] MEDS: FAMOTIDINE 20 MG TABLET. PO (16:43)
[2017-07-16 07:28] LABS: NEGATIVE OBC STREP NEG; POSITIVE OBC STREP POS
== END 2017-07-15 18:04 | disposition home or self-care (01) ==
LOC: ER 15:33
DX: L27.0 Generalized skin eruption due to drugs and medicaments taken internally (principal); T36.4X5A Adverse effect of tetracyclines, initial encounter; E11.9 Type 2 diabetes mellitus without complications; Z90.710 Acquired absence of both cervix and uterus; Y92.89 Other specified places as the place of occurrence of the external cause
CPT/HCPCS: 87070; 87880; 99284; J7512; Q0162; Q0163

== ENCOUNTER 2017-07-18 07:48 | Emergency (ER) | payer SELFPAY ==
[2017-07-18 08:48] LABS: ADD MAN DIFF? NO
[2017-07-18 08:50] LABS: BASO % 1 % (0-3); EOS % 0 % (0-3); HEMATOCRIT 45.5 % (36.0-47.0); HEMOGLOBIN 15.9 g/dL (12.0-15.5); LYMPH # 0.8 x10^3/uL (1.0-4.8); LYMPH % 13 % (24-48); MEAN CORPUSCULAR HEMOGLOBIN 32 pg (25-35); MEAN CORPUSCULAR HGB CONC 35 g/dL (31-37); MEAN CORPUSCULAR VOLUME 92 fL (79-100); MONO # 0.6 x10^3/uL (0.0-1.1); MONO % 9 % (0-9); NEUT # 4.9 x10^3uL (1.8-7.7); NEUT % 78 % (31-73); PLATELET COUNT 118 x10^3/uL (140-400); RED BLOOD COUNT 4.96 x10^6/uL (3.50-5.40); RED CELL DISTRIBUTION WIDTH 13.4 % (11.5-14.5); WHITE BLOOD COUNT 6.3 x10^3/uL (4.0-11.0)
[2017-07-18 08:53] LABS: URINE HCG POC HCG NEGATIVE (Negative)
[2017-07-18 09:01] LABS: MONONUCLEOSIS PATIENT NEGATIVE (NEGATIVE); NEGATIVE OBC MONO NEG; POSITIVE OBC MONO POS
[2017-07-18 09:07] LABS: ANION GAP 11 (6-14); BLOOD UREA NITROGEN 9 mg/dL (7-20); BUN/CREATININE RATIO 10 (6-20); CALCIUM 8.6 mg/dL (8.5-10.1); CARBON DIOXIDE 25 mmol/L (21-32); CHLORIDE 94 mmol/L (98-107); CREATININE 0.9 mg/dL (0.6-1.0); GFR 70.8; SODIUM 130 mmol/L (136-145)
[2017-07-18 09:09] LABS: ALBUMIN 2.9 g/dL (3.4-5.0); ALBUMIN/GLOBULIN RATIO 0.6 (1.0-1.7); ALK PHOS 75 U/L (46-116); ALT (SGPT) 53 U/L (14-59); AST (SGOT) 47 U/L (15-37); GLUCOSE 386 mg/dL (70-99); TOTAL BILIRUBIN 0.8 mg/dL (0.2-1.0); TOTAL PROTEIN 7.8 g/dL (6.4-8.2)
[2017-07-18 09:12] LABS: INFLUENZA A PATIENT NEGATIVE (NEGATIVE); INFLUENZA B PATIENT NEGATIVE (NEGATIVE); OBC FLU VALID
[2017-07-18] MEDS: IBUPROFEN 400 MG TABLET. PO (09:35)
[2017-07-18] MEDS: ONDANSETRON ODT 4 MG TAB.RAPDIS. PO (09:35)
== END 2017-07-18 09:48 | disposition home or self-care (01) ==
LOC: ER 09:48
DX: B08.5 Enteroviral vesicular pharyngitis (principal); E11.9 Type 2 diabetes mellitus without complications; Z90.710 Acquired absence of both cervix and uterus; Z88.1 Allergy status to other antibiotic agents
CPT/HCPCS: 36415; 80053; 81025; 85025; 86308; 87804; 87804-59; 99284; Q0162

== ENCOUNTER 2018-04-30 17:00 | Emergency (ER) | payer SELFPAY ==
[~2018-04-30] VITALS: Ht 157.5 cm; Wt 79.4 kg
[~2018-04-30 17:00] MED LIST changes: +AMOX500C PO; +CIPR500T94 PO; +GLIP5TAB10 PO; +HYDR-3164 PO; -HYDR-971 PO; +IBUP-1027 PO; +METF500T16 PO; -METF500T4 PO; +METF850T8 PO; +ONDA4TAB10 SL; +OXYC1TAB7 PO; +PHEN100T82 PO; +PRED20TA PO; +TRAM-48 PO
[2018-04-30 17:27] VITALS: BP 158/95
[2018-04-30 17:57] LABS: BILIRUBIN,URINE NEGATIVE (NEG); CLARITY,URINE CLEAR; COLOR,URINE YELLOW; NITRITE,URINE NEGATIVE (NEG); PROTEIN,URINE 30 mg/dL (NEG-TRACE)
[2018-04-30 18:03] LABS: BACTERIA,URINE MODERATE /HPF (0-FEW); RBC,URINE 0 /HPF (0-2); SQUAMOUS EPITHELIAL CELL,UR FEW /LPF
[2018-04-30] MEDS ORDERED: cefTRIAXone IM 250 MG VIAL IM ONE (18:30)
[2018-04-30] MEDS ORDERED: AZITHROMYCIN 250 MG TABLET. PO ONE (18:30)
[2018-04-30] MEDS ORDERED: FLUC150T PO (19:03)
--- NOTE | 2018-04-30 19:05 | PHYS DOC ---
Past Medical History Past Medical History: Diabetes-Type I Past Surgical History: Hysterectomy Additional Past Surgical Histo: D&C, Ablation, hernia repair Alcohol Use: Occasionally Drug Use: None Adult General Chief Complaint Chief Complaint: VAGINAL PROBLEM HPI HPI Patient is a 37 year old female who presents with vaginal itching and burning with urination 2 weeks. The patient states that she has been with same sexual partner for 7 years. She denies possibility of an STD. She denies possibility of . She denies abdominal pain or fever. Review of Systems Review of Systems Constitutional: Denies fever or chills [] Eyes: Denies change in visual acuity, redness, or eye pain [] HENT: Denies nasal congestion or sore throat [] Respiratory: Denies cough or shortness of breath [] Cardiovascular: No additional information not addressed in HPI [] GI: Denies abdominal pain, nausea, vomiting, bloody stools or diarrhea [] : See history of present illness Musculoskeletal: Denies back pain or joint pain [] Integument: Denies rash or skin lesions [] Neurologic: Denies headache, focal weakness or sensory changes [] Endocrine: Denies polyuria or polydipsia [] All other systems were reviewed and found to be within normal limits, except as documented in this note. Current Medications Current Medications Current Medications Medications (Trade) Dose Ordered Sig/Michael Start Time Stop Time Status Last Admin Dose Admin Azithromycin (Zithromax) 1,000 mg 1X ONCE 04/30/18 18:30 04/30/18 18:31 DC 04/30/18 18:49 1,000 MG Ceftriaxone Sodium (Rocephin Im) 250 mg 1X ONCE 04/30/18 18:30 04/30/18 18:31 DC 04/30/18 18:50 250 MG Allergies Allergies Allergies Coded Allergies Type Severity Reaction Last Updated Verified doxycycline Allergy Intermediate RASH 07/18/17 Yes Physical Exam Physical Exam Constitutional: Well developed, well nourished, no acute distress, non-toxic appearance. [] HENT: Normocephalic, atraumatic, bilateral external ears normal, oropharynx moist, no oral exudates, nose normal. [] Eyes: PERRLA, EOMI, conjunctiva normal, no discharge. [] Neck: Normal range of motion, no tenderness, supple, no stridor. [] Cardiovascular:Heart rate regular rhythm, no murmur [] Lungs & Thorax: Bilateral breath sounds clear to auscultation [] Abdomen: Bowel sounds normal, soft, no tenderness, no masses, no pulsatile masses. [] Skin: Warm, dry, no erythema, no rash. [] Back: No tenderness, no CVA tenderness. [] Extremities: No tenderness, no cyanosis, no clubbing, ROM intact, no edema. [] Neurologic: Alert and oriented X 3, normal motor function, normal sensory function, no focal deficits noted. [] Psychologic: Affect normal, judgement normal, mood normal. [] Current Patient Data Vital Signs Vital Signs Date Time Temp Pulse Resp B/P (MAP) Pulse Ox O2 Delivery O2 Flow Rate FiO2 04/30/18 17:27 99.1 108 18 158/95 (116) 96 Room Air 99.1 Lab Values Laboratory Tests Test 04/30/18 17:15 04/30/18 17:49 Urine Collection Type Unknown Urine Color Yellow Urine Clarity Clear Urine pH 6.0 Urine Specific [place] >=1.030 Urine Protein 30 mg/dL (NEG-TRACE) Urine Glucose (UA) >=1000 mg/dL (NEG) Urine Ketones (Stick) 40 mg/dL (NEG) Urine Blood Negative (NEG) Urine Nitrite Negative (NEG) Urine Bilirubin Negative (NEG) Urine Urobilinogen Dipstick 1.0 mg/dL (0.2 mg/dL) Urine Leukocyte Esterase Negative (NEG) Urine RBC 0 /HPF (0-2) Urine WBC 1-4 /HPF (0-4) Urine Squamous Epithelial Cells Few /LPF Urine Bacteria Moderate /HPF (0-FEW) POC Urine HCG, Qualitative Hcg negative (Negative) Microbiology 04/30/18 Wet Prep - Final, Complete EKG EKG [] Radiology/Procedures Radiology/Procedures Pelvic Exam: Climbing Guide present Abdomen: Nontender External Genitalia: Small fluid-filled blisters noted to mucosa Speculum: Normal vaginal mucosa, white cervical discharge Bimanual: No adnexal masses or tenderness, No CMT Course & Med Decision Making Course & Med Decision Making Pertinent Labs and Imaging studies reviewed. (See chart for details) []The patient was given Rocephin and Zithromax in the emergency department prophylactically. She was found to have yeast infection. We will call with positive cultures only. She is in agreement with this plan. Staff Physician Addendum: I was working in the ER during the course of this patient's visit. I was available for consultation as needed, but I was not directly involved in the care of this patient. Bobby Disclaimer Bobby Disclaimer This electronic medical record was generated, in whole or in part, using a voice recognition dictation system. Departure Departure Impression: Primary Impression: Yeast infection Additional Impression: Possible exposure to STD Disposition: 01 HOME, SELF-CARE Condition: STABLE Referrals: NO PCP (PCP) Patient Instructions: Sexually Transmitted Disease, [id number], Yeast Infection of the Skin, [id number] Additional Instructions: You were treated presumptively in the emergency department for STDs. Abstain from sexual activity for 2 weeks to allow time for the antibiotics work. We will only call you with positive cultures. You were also found to have a yeast infection. Please take the Diflucan as directed to clear this infection. If worsening return to the emergency department. Scripts Fluconazole (DIFLUCAN) 150 Mg Tablet 1 TAB PO ONCE for yeast infection, #1 TAB 1 Refill Prov: PETE VELOZ APRN 04/30/18 Problem Qualifiers PETE VELOZ APRN Apr 30, 2018 19:04 DARIUSZ SOARES MD May 02, 2018 03:17
[2018-05-04 14:20] LABS: GC PROBE Negative (Negative)
--- NOTE | 2018-05-06 16:24 | VNOTE ---
CALL BACK NOTE CALL BACK Microbiology 04/30/18 Wet Prep - Final, Complete 04/30/18 Urine Culture - Final, Complete 04/30/18 Urine Culture Result 1 (ARNULFO) - Final, Complete 04/30/18 Antimicrobic Susceptibility - Final, Complete F/U phone call regarding patient's urine culture, she states she is feeling better, has no UTI symptoms. PAIGE CABRERA APRN May 06, 2018 16:24
== END 2018-04-30 19:27 | disposition home or self-care (01) ==
LOC: ER 17:00
DX: B37.3 Candidiasis of vulva and vagina (principal); E10.8 Type 1 diabetes mellitus with unspecified complications; Z90.710 Acquired absence of both cervix and uterus; Z88.1 Allergy status to other antibiotic agents
CPT/HCPCS: 81001; 81025; 87086; 87491; 87591; 96372; 99283; J0696; Q0111; Q0144

== ENCOUNTER 2019-05-14 17:08 | Emergency (ER) | payer OTHER ==
[~2019-05-14] VITALS: Ht 147.3 cm; Wt 77.1 kg
[~2019-05-14 17:08] MED LIST changes: +FLUC150T PO
[2019-05-14] MEDS ORDERED: MORPHINE SULFATE 10 MG/ML VIAL. IV STA (18:36)
--- NOTE | 2019-05-14 18:42 | PHYS DOC ---
Past Medical History Past Medical History: Diabetes-Type I (EDSON ESCAMILLA APRN) Past Surgical History: Hysterectomy Additional Past Surgical Histo: D&C, Ablation, hernia repair (EDSON ESCAMILLA APRN) Alcohol Use: None Drug Use: None (EDSON ESCAMILLA APRN) Attending Signature I have participated in the care of this patient and I have reviewed and agree with all pertinent clinical information above including history, exam, and recommendations. (NIKKI CACERES MD) Adult General Chief Complaint Chief Complaint: ABDOMINAL PAIN HPI HPI Patient is a 38 year old female who presents with periumbilical abdominal pain has been ongoing for several months but got worse in last week. The patient also she becoming nauseated last week. The patient states her pain as 8 out of 10 in severity and sharp. The patient has a history of a hernia. (EDSON ESCAMILLA APRN) Review of Systems Review of Systems Constitutional: Denies fever or chills [] Eyes: Denies change in visual acuity, redness, or eye pain [] HENT: Denies nasal congestion or sore throat [] Respiratory: Denies cough or shortness of breath [] Cardiovascular: No additional information not addressed in HPI [] GI: Reports abdominal pain, nausea, denies vomiting, bloody stools or diarrhea [] : Denies dysuria or hematuria [] Musculoskeletal: Denies back pain or joint pain [] Integument: Denies rash or skin lesions [] Neurologic: Denies headache, focal weakness or sensory changes [] Endocrine: Denies polyuria or polydipsia [] Complete systems were reviewed and found to be within normal limits, except as documented in this note. (EDSON ESCAMILLA APRN) Current Medications Current Medications Current Medications Medications (Trade) Dose Ordered Sig/Michael Start Time Stop Time Status Last Admin Dose Admin Info (CONTRAST GIVEN -- Rx MONITORING) 1 each PRN DAILY PRN 05/14/19 19:30 05/14/19 20:38 DC Iohexol (Omnipaque 300 Mg/ml) 75 ml 1X ONCE 05/14/19 19:15 05/14/19 19:17 DC 05/14/19 19:41 75 ML Morphine Sulfate (Morphine Sulfate) 5 mg 1X STAT 05/14/19 18:36 05/14/19 18:43 DC 05/14/19 18:58 5 MG Ondansetron HCl (Zofran) 4 mg 1X ONCE 05/14/19 18:45 05/14/19 18:46 DC 05/14/19 18:56 4 MG Sodium Chloride 1,000 ml @ 1,000 mls/hr 1X ONCE 05/14/19 18:45 05/14/19 19:44 DC 05/14/19 18:54 1,000 MLS/HR (NIKKI CACERES MD) Allergies Allergies Allergies Coded Allergies Type Severity Reaction Last Updated Verified doxycycline Allergy Intermediate RASH 07/18/17 Yes (NIKKI CACERES MD) Physical Exam Physical Exam Constitutional: Well developed, well nourished, no acute distress, non-toxic appearance. [] HENT: Normocephalic, atraumatic, bilateral external ears normal, oropharynx moist, no oral exudates, nose normal. [] Eyes: PERRLA, EOMI, conjunctiva normal, no discharge. [] Neck: Normal range of motion, no tenderness, supple, no stridor. [] Cardiovascular:Heart rate regular rhythm, no murmur [] Lungs & Thorax: Bilateral breath sounds clear to auscultation [] Abdomen: Bowel sounds normal, soft, periumbilical tenderness, no masses, no pulsatile masses. [] Skin: Warm, dry, no erythema, no rash. [] Neurologic: Alert and oriented X 3, normal motor function, normal sensory function, no focal deficits noted. [] Psychologic: Affect normal, judgement normal, mood normal. [] (EDSON ESCAMILLA APRN) Current Patient Data Vital Signs Vital Signs Date Time Temp Pulse Resp B/P (MAP) Pulse Ox O2 Delivery O2 Flow Rate FiO2 05/14/19 20:28 96 18 158/92 (114) 96 Room Air 05/14/19 18:27 99.0 99.0 (NIKKI CACERES MD) Lab Values Laboratory Tests Test 05/14/19 17:15 05/14/19 17:19 05/14/19 18:40 Urine Collection Type Unknown Urine Color Yellow Urine Clarity Clear Urine pH 6.0 Urine Specific Allen >=1.030 Urine Protein Negative mg/dL (NEG-TRACE) Urine Glucose (UA) >=1000 mg/dL (NEG) Urine Ketones (Stick) Negative mg/dL (NEG) Urine Blood Negative (NEG) Urine Nitrite Negative (NEG) Urine Bilirubin Negative (NEG) Urine Urobilinogen Dipstick 0.2 mg/dL (0.2 mg/dL) Urine Leukocyte Esterase Negative (NEG) Urine RBC 0 /HPF (0-2) Urine WBC 1-4 /HPF (0-4) Urine Squamous Epithelial Cells Few /LPF Urine Bacteria Many /HPF (0-FEW) POC Urine HCG, Qualitative Hcg negative (Negative) White Blood Count 8.3 x10^3/uL (4.0-11.0) Red Blood Count 4.61 x10^6/uL (3.50-5.40) Hemoglobin 14.9 g/dL (12.0-15.5) Hematocrit 42.5 % (36.0-47.0) Mean Corpuscular Volume 92 fL (79-100) Mean Corpuscular Hemoglobin 32 pg (25-35) Mean Corpuscular Hemoglobin Concent 35 g/dL (31-37) Red Cell Distribution Width 13.3 % (11.5-14.5) Platelet Count 162 x10^3/uL (140-400) Neutrophils (%) (Auto) 59 % (31-73) Lymphocytes (%) (Auto) 30 % (24-48) Monocytes (%) (Auto) 7 % (0-9) Eosinophils (%) (Auto) 3 % (0-3) Basophils (%) (Auto) 1 % (0-3) Neutrophils # (Auto) 4.9 x10^3/uL (1.8-7.7) Lymphocytes # (Auto) 2.5 x10^3/uL (1.0-4.8) Monocytes # (Auto) 0.5 x10^3/uL (0.0-1.1) Eosinophils # (Auto) 0.3 x10^3/uL (0.0-0.7) Basophils # (Auto) 0.1 x10^3/uL (0.0-0.2) Sodium Level 135 mmol/L (136-145) L Potassium Level 3.9 mmol/L (3.5-5.1) Chloride Level 98 mmol/L (98-107) Carbon Dioxide Level 30 mmol/L (21-32) Anion Gap 7 (6-14) Blood Urea Nitrogen 10 mg/dL (7-20) Creatinine 0.9 mg/dL (0.6-1.0) Estimated GFR (Cockcroft-Gault) 70.1 BUN/Creatinine Ratio 11 (6-20) Glucose Level 352 mg/dL (70-99) H Calcium Level 9.1 mg/dL (8.5-10.1) Total Bilirubin 0.4 mg/dL (0.2-1.0) Aspartate Amino Transferase (AST) 28 U/L (15-37) Alanine Aminotransferase (ALT) 37 U/L (14-59) Alkaline Phosphatase 85 U/L (46-116) Total Protein 7.9 g/dL (6.4-8.2) Albumin 3.6 g/dL (3.4-5.0) Albumin/Globulin Ratio 0.8 (1.0-1.7) L Lipase 183 U/L (73-393) Laboratory Tests 05/14/19 18:40 Laboratory Tests 05/14/19 18:40 (NIKKI CACERES MD) EKG EKG [] (EDSON ESCAMILLA APRN) Radiology/Procedures Radiology/Procedures [][facility] [address] [place] [address] IMAGING REPORT Signed PATIENT: SAMEER DAVIES ACCOUNT: [id number] : 1980 LOCATION: ER AGE: 38 SEX: F EXAM STATUS: REG ER ORD. PHYSICIAN: EDSON ESCAMILLA APRN REASON: periumbilical abdominal pain, OMNI 300, 75 ML IV PROCEDURE: CT ABD PELV W/ IV CONTRST ONLY Examination: CT of the abdomen pelvis with IV contrast HISTORY: History of periumbilical pain COMPARISON: 08/22/2017 TECHNIQUE: Axial CT images of the abdomen pelvis were performed with IV contrast. Coronal and sagittal reformats are performed Exposure: One or more of the following individualized dose reduction techniques were utilized for this examination: 1. Automated exposure control 2. Adjustment of the mA and/or kV according to patient size 3. Use of iterative reconstruction technique FINDINGS: The bibasilar lungs are clear. No evidence of free air identified in the abdomen. The liver, spleen, adrenals grossly appears unremarkable. Gallbladder is mildly distended. The stomach is mildly distended. The visualized pancreas grossly appears unremarkable small bowel is nondilated. Feces and gas noted in the colon. Appendix is normal. Small fat-containing umbilical hernia is identified measuring 3.8 x 4.1 cm with the neck of the hernia measuring 1.4 cm in CC dimension. The bilateral kidneys enhance symmetrically. Urinary bladder is mildly distended. IMPRESSION: 1. Small fat-containing umbilical hernia. Electronically signed by: Casimiro Osman MD (05/14/2019 7:56 PM) [facility] DICTATED and SIGNED BY: CASIMIRO OSMAN MD DATE: 05/14/191955 (EDSON ESCAMILLA APRN) Course & Med Decision Making Course & Med Decision Making Pertinent Labs and Imaging studies reviewed. (See chart for details) Will get labs, CT, and UA. Labs are unremarkable. CT shows a hernia. Will have follow up with general surgery. (EDSON ESCAMILLA APRN) Dragon Disclaimer Dragon Disclaimer This electronic medical record was generated, in whole or in part, using a voice recognition dictation system. (EDSON ESCAMILLA APRN) Departure Departure Impression: Primary Impression: Umbilical hernia Disposition: HOME, SELF-CARE Condition: STABLE Referrals: NO PCP (PCP) AMAURY ODOM MD Patient Instructions: Hernia Additional Instructions: Thank you for visiting [facility]. We appreciate you trusting us with your care. If any additional problems come up don't hesitate to return to visit us. Please follow up with your primary care provider so they can plan additional care if needed and know about the problem that you had. If symptoms worsen come back to the Emergency Department. Any concerning symptoms that start such as chest pain, shortness of air, weakness or numbness on one side of the body, running high fevers or any other concerning symptoms return to the ER. Scripts Ondansetron (ONDANSETRON ODT) 4 Mg Tab.rapdis 1 TAB PO PRN Q6-8HRS PRN for NAUSEA, #16 TAB Prov: EDSON ESCAMILLA APRN 05/14/19 Problem Qualifiers Primary Impression: Umbilical hernia Obstruction and gangrene presence: without obstruction or gangrene Qualified Codes: K42.9 - Umbilical hernia without obstruction or gangrene EDSON ESCAMILLA APRN May 14, 2019 18:42 NIKKI CACERES MD May 15, 2019 00:26
[2019-05-14 18:45] LABS: BILIRUBIN,URINE NEGATIVE (NEG); CLARITY,URINE CLEAR; COLOR,URINE YELLOW; NITRITE,URINE NEGATIVE (NEG); PROTEIN,URINE NEGATIVE (NEG-TRACE); UROBILINOGEN,URINE 0.2 mg/dL (0.2 mg/dL)
[2019-05-14] MEDS ORDERED: IV NORMAL SALINE 1000ML BAG 1,000 ML IV ONE (18:45)
[2019-05-14] MEDS ORDERED: ONDANSETRON PF 4 MG/2 ML VIAL. IV ONE (18:45)
[2019-05-14 18:48] LABS: BASO # 0.1 x10^3/uL (0.0-0.2); BASO % 1 % (0-3); EOS # 0.3 x10^3/uL (0.0-0.7); EOS % 3 % (0-3); HEMATOCRIT 42.5 % (36.0-47.0); HEMOGLOBIN 14.9 g/dL (12.0-15.5); LYMPH # 2.5 x10^3/uL (1.0-4.8); LYMPH % 30 % (24-48); MEAN CORPUSCULAR HEMOGLOBIN 32 pg (25-35); MEAN CORPUSCULAR HGB CONC 35 g/dL (31-37); MEAN CORPUSCULAR VOLUME 92 fL (79-100); MONO # 0.5 x10^3/uL (0.0-1.1); MONO % 7 % (0-9); NEUT # 4.9 x10^3/uL (1.8-7.7); NEUT % 59 % (31-73); PLATELET COUNT 162 x10^3/uL (140-400); RED BLOOD COUNT 4.61 x10^6/uL (3.50-5.40); RED CELL DISTRIBUTION WIDTH 13.3 % (11.5-14.5); WHITE BLOOD COUNT 8.3 x10^3/uL (4.0-11.0)
[2019-05-14 18:51] LABS: BACTERIA,URINE MANY /HPF (0-FEW); RBC,URINE 0 /HPF (0-2); SQUAMOUS EPITHELIAL CELL,UR FEW /LPF
[2019-05-14 19:05] LABS: CALCIUM 9.1 mg/dL (8.5-10.1); CREATININE 0.9 mg/dL (0.6-1.0); GFR 70.1; POTASSIUM 3.9 mmol/L (3.5-5.1)
[2019-05-14 19:10] LABS: ALBUMIN 3.6 g/dL (3.4-5.0); ALBUMIN/GLOBULIN RATIO 0.8 (1.0-1.7); TOTAL BILIRUBIN 0.4 mg/dL (0.2-1.0); TOTAL PROTEIN 7.9 g/dL (6.4-8.2)
[2019-05-14] MEDS ORDERED: IOHEXOL 300 MG/ML 100ML VIAL. IV ONE (19:15)
[2019-05-14] MEDS ORDERED: CONTRAST GIVEN. MC PRN (19:30)
--- NOTE | 2019-05-14 19:59 | RAD ---
Examination: CT of the abdomen pelvis with IV contrast HISTORY: History of periumbilical pain COMPARISON: 08/22/2017 TECHNIQUE: Axial CT images of the abdomen pelvis were performed with IV contrast. Coronal and sagittal reformats are performed Exposure: One or more of the following individualized dose reduction techniques were utilized for this examination: 1. Automated exposure control 2. Adjustment of the mA and/or kV according to patient size 3. Use of iterative reconstruction technique FINDINGS: The bibasilar lungs are clear. No evidence of free air identified in the abdomen. The liver, spleen, adrenals grossly appears unremarkable. Gallbladder is mildly distended. The stomach is mildly distended. The visualized pancreas grossly appears unremarkable small bowel is nondilated. Feces and gas noted in the colon. Appendix is normal. Small fat-containing umbilical hernia is identified measuring 3.8 x 4.1 cm with the neck of the hernia measuring 1.4 cm in CC dimension. The bilateral kidneys enhance symmetrically. Urinary bladder is mildly distended. IMPRESSION: 1. Small fat-containing umbilical hernia. Electronically signed by: Casimiro Osman MD (05/14/2019 7:56 PM) [facility]
[2019-05-14] MEDS ORDERED: ONDA4TAB12 PO (20:20)
[2019-05-14 20:28] VITALS: BP 158/92
== END 2019-05-14 20:30 | disposition home or self-care (01) ==
LOC: ER 17:08
DX: K42.9 Umbilical hernia without obstruction or gangrene (principal); R10.33 Periumbilical pain; R11.0 Nausea; Z88.1 Allergy status to other antibiotic agents; E10.9 Type 1 diabetes mellitus without complications; Z90.710 Acquired absence of both cervix and uterus; Z98.890 Other specified postprocedural states
CPT/HCPCS: 36415; 74177; 80053; 81001; 81025; 83690; 85025; 87086; 96374; 96375; 99285; J2270; J2405; J7030; Q9967

== ENCOUNTER 2019-06-14 05:39 | Emergency (ER) | payer OTHER ==
[~2019-06-14] VITALS: Ht 147.3 cm; Wt 76.8 kg
[~2019-06-14 05:39] MED LIST changes: +ONDA4TAB12 PO
--- NOTE | 2019-06-14 06:09 | PHYS DOC ---
Past Medical History Past Medical History: Diabetes-Type I Past Surgical History: Hysterectomy Additional Past Surgical Histo: D&C, Ablation, hernia repair Smoking Status: Never Smoker Alcohol Use: None Drug Use: None Adult General Chief Complaint Chief Complaint: NEURO SYMPTOMS/DEFICITS [facility] Patient is a 38 year old female with past medical history significant for diabetes presents with complaint of left lower leg numbness and weakness that started 2 days ago without known injury. She denies headache, chest pain, shortness of breath. She complains of symptoms from the knee to the foot. She denies back pain as well. No medications taken prior to arrival and no history of diabetic neuropathy or similar symptoms in the past. Review of Systems Review of Systems All other ROS is negative unless otherwise stated in HPI Current Medications Current Medications Current Medications Medications (Trade) Dose Ordered Sig/Michael Start Time Stop Time Status Last Admin Dose Admin Morphine Sulfate (Morphine Sulfate) 2 mg 1X ONCE 06/14/19 07:30 06/14/19 07:23 DC Allergies Allergies Allergies Coded Allergies Type Severity Reaction Last Updated Verified doxycycline Allergy Intermediate RASH 07/18/17 Yes Physical Exam Physical Exam See above Constitutional: Well developed, well nourished, no acute distress, non-toxic appearance. [] HENT: Normocephalic, atraumatic, bilateral external ears normal, oropharynx mo ist, no oral exudates, nose normal. [] Eyes: PERRLA, EOMI, conjunctiva normal, no discharge. [] Neck: Normal range of motion, no tenderness, supple, no stridor. [] Cardiovascular:Heart rate regular rhythm, no murmur [] Lungs & Thorax: Bilateral breath sounds clear to auscultation [] Skin: Warm, dry, no erythema, no rash. [] Back: No tenderness, no CVA tenderness. [] Extremities: No tenderness, no cyanosis, no clubbing, ROM intact, no edema. [] Neurologic: Alert and oriented X 3, patient has 4/5 strength in the left lower extremity from the knee distal and she has decreased sensation in this area as well. Remainder of neurologic Examination is unremarkable Psychologic: Affect normal, judgement normal, mood normal. [] Current Patient Data Vital Signs Vital Signs Date Time Temp Pulse Resp B/P (MAP) Pulse Ox O2 Delivery O2 Flow Rate FiO2 06/14/19 06:34 88 16 155/86 (109) 98 Room Air 06/14/19 05:40 98.2 98.2 Lab Values Laboratory Tests Test 06/14/19 05:46 06/14/19 06:00 06/14/19 06:30 Glucose (Fingerstick) 420 mg/dL (70-99) H White Blood Count 7.6 x10^3/uL (4.0-11.0) Red Blood Count 4.71 x10^6/uL (3.50-5.40) Hemoglobin 15.0 g/dL (12.0-15.5) Hematocrit 43.2 % (36.0-47.0) Mean Corpuscular Volume 92 fL (79-100) Mean Corpuscular Hemoglobin 32 pg (25-35) Mean Corpuscular Hemoglobin Concent 35 g/dL (31-37) Red Cell Distribution Width 13.3 % (11.5-14.5) Platelet Count 153 x10^3/uL (140-400) Neutrophils (%) (Auto) 59 % (31-73) Lymphocytes (%) (Auto) 29 % (24-48) Monocytes (%) (Auto) 7 % (0-9) Eosinophils (%) (Auto) 4 % (0-3) H Basophils (%) (Auto) 1 % (0-3) Neutrophils # (Auto) 4.5 x10^3/uL (1.8-7.7) Lymphocytes # (Auto) 2.2 x10^3/uL (1.0-4.8) Monocytes # (Auto) 0.5 x10^3/uL (0.0-1.1) Eosinophils # (Auto) 0.3 x10^3/uL (0.0-0.7) Basophils # (Auto) 0.1 x10^3/uL (0.0-0.2) Prothrombin Time 13.5 SEC (11.7-14.0) Prothrombin Time INR 1.1 (0.8-1.1) Sodium Level 133 mmol/L (136-145) L Potassium Level 3.9 mmol/L (3.5-5.1) Chloride Level 95 mmol/L (98-107) L Carbon Dioxide Level 26 mmol/L (21-32) Anion Gap 12 (6-14) Blood Urea Nitrogen 14 mg/dL (7-20) Creatinine 0.8 mg/dL (0.6-1.0) Estimated GFR (Cockcroft-Gault) 80.3 BUN/Creatinine Ratio 18 (6-20) Glucose Level 404 mg/dL (70-99) H Calcium Level 9.1 mg/dL (8.5-10.1) Total Bilirubin 0.4 mg/dL (0.2-1.0) Aspartate Amino Transferase (AST) 22 U/L (15-37) Alanine Aminotransferase (ALT) 35 U/L (14-59) Alkaline Phosphatase 80 U/L (46-116) Total Protein 7.5 g/dL (6.4-8.2) Albumin 3.3 g/dL (3.4-5.0) L Albumin/Globulin Ratio 0.8 (1.0-1.7) L Acetone Level Neg (NEG) Laboratory Tests 06/14/19 06:00 Laboratory Tests 06/14/19 06:30 EKG EKG [] Radiology/Procedures Radiology/Procedures CT LUMBAR SPINE WO CONTRAST Clinical Indication: Left lower leg numbness and weakness. Comparison: CT abdomen and pelvis with contrast May 14, 2019. TECHNIQUE: Helical CT imaging of the lumbar spine is performed without IV contrast. Findings: No acute compression fracture. The vertebral body height and alignment are maintained. There is mild degenerative endplate spurring. This is most apparent on the left at L1/L2. There is no significant disc space narrowing. The sacroiliac joints demonstrate air in the joint space and there is sclerosis of the iliac bones. No ankylosis is seen. The sacrum is intact. The central canal is widely patent in the lumbar spine. There is minimal broad-based posterior disc bulge of L5/S1. No other disc bulge is seen. The neural foramina are adequate in the lumbar spine. There is no hydronephrosis. The abdominal aorta is normal caliber. Visualized urinary bladder is normal. There is hysterectomy. IMPRESSION: 1. No acute fracture. No malalignment. 2. The central canal and neural foramina are patent in the lumbar spine. Electronically signed by: Paul Gauthier MD (06/14/2019 6:36 AM) [id number][] CT HEAD WITHOUT CONTRAST History: Left leg weakness and numbness greater than 24 hours. Comparison: CT head without contrast, August 21, 2017. Procedure: Axial images are obtained of the head from the skull base through the vertex without IV contrast. Findings: The ventricles and sulci are normal for the patient's age. No mass-effect, midline shift, hemorrhage, extra-axial fluid collection, or obvious acute infarction is identified. Basilar cisterns are patent. Bone windows demonstrate no acute calvarial abnormality. The visualized paranasal sinuses are clear. Mastoid air cells are well aerated. IMPRESSION: No acute intracranial abnormality. Electronically signed by: Paul Gauthier MD (06/14/2019 6:20 AM) [id number] Course & Med Decision Making Course & Med Decision Making Patient seen for altered sensation weakness of the left lower extremity. With CT scan of her head and CT scan of the low back and check labs. Her diagnosis neuropathy, acute cranial process, left-sided sciatica, spinal cord anomaly. 0738: I spoke with Dr. Cisneros from neurology regarding the patient's condition and he believes this is probably a peroneal neuropathy. He recommended anti-inflammatories and steroids and a AFO brace and follow up in 3-6 weeks. Dragon Disclaimer Dragon Disclaimer This electronic medical record was generated, in whole or in part, using a voice recognition dictation system. Departure Departure Impression: Primary Impression: Weakness of left lower extremity Additional Impressions: Numbness of left lower extremity Uncontrolled diabetes mellitus Disposition: 01 HOME, SELF-CARE Condition: STABLE Referrals: COLEEN DEUTSCH MD Call for follow up appointment Patient Instructions: Diabetes Meal Planning Guide, Diabetic Neuropathy Additional Instructions: You will need to obtain an ankle-foot orthotic for support of your left foot. Please take prescriptions as prescribed Scripts Naproxen (NAPROXEN) 500 Mg Tablet 1 TAB PO BID for pain for 5 Days, #10 TAB 0 Refills Prov: DOMENICA ALBARRAN DO 06/14/19 Prednisone (PREDNISONE) 50 Mg Tablet 1 TAB PO DAILY, #5 TAB Prov: DOMENICA ALBARRAN DO 06/14/19 Problem Qualifiers DOMENICA ALBARRAN DO Jun 14, 2019 06:09
[2019-06-14 06:13] LABS: BASO # 0.1 x10^3/uL (0.0-0.2); BASO % 1 % (0-3); EOS # 0.3 x10^3/uL (0.0-0.7); EOS % 4 % (0-3); HEMATOCRIT 43.2 % (36.0-47.0); LYMPH # 2.2 x10^3/uL (1.0-4.8); LYMPH % 29 % (24-48); MEAN CORPUSCULAR HEMOGLOBIN 32 pg (25-35); MEAN CORPUSCULAR HGB CONC 35 g/dL (31-37); MEAN CORPUSCULAR VOLUME 92 fL (79-100); MONO # 0.5 x10^3/uL (0.0-1.1); MONO % 7 % (0-9); NEUT # 4.5 x10^3/uL (1.8-7.7); NEUT % 59 % (31-73); PLATELET COUNT 153 x10^3/uL (140-400); RED BLOOD COUNT 4.71 x10^6/uL (3.50-5.40); RED CELL DISTRIBUTION WIDTH 13.3 % (11.5-14.5); WHITE BLOOD COUNT 7.6 x10^3/uL (4.0-11.0)
--- NOTE | 2019-06-14 06:23 | RAD ---
RS Compliance Statement: One or more of the following individualized dose reduction techniques were utilized for this examination: 1. Automated exposure control 2. Adjustment of the mA and/or kV according to patient size 3. Use of iterative reconstruction technique CT HEAD WITHOUT CONTRAST History: Left leg weakness and numbness greater than 24 hours. Comparison: CT head without contrast, August 21, 2017. Procedure: Axial images are obtained of the head from the skull base through the vertex without IV contrast. Findings: The ventricles and sulci are normal for the patient's age. No mass-effect, midline shift, hemorrhage, extra-axial fluid collection, or obvious acute infarction is identified. Basilar cisterns are patent. Bone windows demonstrate no acute calvarial abnormality. The visualized paranasal sinuses are clear. Mastoid air cells are well aerated. IMPRESSION: No acute intracranial abnormality. Electronically signed by: Paul Gauthier MD (06/14/2019 6:20 AM) [id number]
--- NOTE | 2019-06-14 06:39 | RAD ---
PQRS Compliance Statement: One or more of the following individualized dose reduction techniques were utilized for this examination: 1. Automated exposure control 2. Adjustment of the mA and/or kV according to patient size 3. Use of iterative reconstruction technique CT LUMBAR SPINE WO CONTRAST Clinical Indication: Left lower leg numbness and weakness. Comparison: CT abdomen and pelvis with contrast May 14, 2019. TECHNIQUE: Helical CT imaging of the lumbar spine is performed without IV contrast. Findings: No acute compression fracture. The vertebral body height and alignment are maintained. There is mild degenerative endplate spurring. This is most apparent on the left at L1/L2. There is no significant disc space narrowing. The sacroiliac joints demonstrate air in the joint space and there is sclerosis of the iliac bones. No ankylosis is seen. The sacrum is intact. The central canal is widely patent in the lumbar spine. There is minimal broad-based posterior disc bulge of L5/S1. No other disc bulge is seen. The neural foramina are adequate in the lumbar spine. There is no hydronephrosis. The abdominal aorta is normal caliber. Visualized urinary bladder is normal. There is hysterectomy. IMPRESSION: 1. No acute fracture. No malalignment. 2. The central canal and neural foramina are patent in the lumbar spine. Electronically signed by: Paul Gauthier MD (06/14/2019 6:36 AM) [id number]
[2019-06-14 06:49] LABS: PROTHROMBIN TIME PATIENT 13.5 SEC (11.7-14.0)
[2019-06-14 06:50] LABS: CALCIUM 9.1 mg/dL (8.5-10.1); CREATININE 0.8 mg/dL (0.6-1.0); GFR 80.3; POTASSIUM 3.9 mmol/L (3.5-5.1)
[2019-06-14 06:56] LABS: ALBUMIN 3.3 g/dL (3.4-5.0); ALBUMIN/GLOBULIN RATIO 0.8 (1.0-1.7); TOTAL BILIRUBIN 0.4 mg/dL (0.2-1.0); TOTAL PROTEIN 7.5 g/dL (6.4-8.2)
[2019-06-14] MEDS ORDERED: MORPHINE SULFATE 2 MG/ML VIAL. IV ONE (07:30)
[2019-06-14] MEDS ORDERED: NAPR-514 PO (07:44)
[2019-06-14] MEDS ORDERED: PRED50TA PO (07:44)
[2019-06-14 09:04] VITALS: BP 145/91
[2019-06-14 10:05] LABS: BILIRUBIN,URINE NEGATIVE (NEG); CLARITY,URINE CLEAR; COLOR,URINE YELLOW; NITRITE,URINE NEGATIVE (NEG); PROTEIN,URINE NEGATIVE (NEG-TRACE); UROBILINOGEN,URINE 0.2 mg/dL (0.2 mg/dL)
[2019-06-14 10:26] LABS: BACTERIA,URINE FEW /HPF (0-FEW); RBC,URINE 0 /HPF (0-2); SQUAMOUS EPITHELIAL CELL,UR MOD /LPF; WBC,URINE OCC /HPF (0-4)
== END 2019-06-14 09:20 | disposition home or self-care (01) ==
LOC: ER 05:39
DX: R53.1 Weakness (principal); R20.0 Anesthesia of skin; E10.21 Type 1 diabetes mellitus with diabetic nephropathy; Z90.710 Acquired absence of both cervix and uterus; Z98.890 Other specified postprocedural states; Z88.1 Allergy status to other antibiotic agents
CPT/HCPCS: 36415; 70450; 72131; 80053; 81001; 82010; 82962; 85025; 85610; 99285

== ENCOUNTER 2019-10-20 16:49 | Emergency (ER) | payer OTHER ==
[~2019-10-20] VITALS: Ht 147.3 cm; Wt 75.0 kg
[~2019-10-20 16:49] MED LIST changes: +NAPR-514 PO; +PRED50TA PO
[2019-10-20] MEDS ORDERED: ONDANSETRON PF 4 MG/2 ML VIAL. IV ONE (17:30)
[2019-10-20] MEDS ORDERED: MORPHINE SULFATE 2 MG/ML VIAL. IV ONE (17:30)
[2019-10-20] MEDS ORDERED: IV NORMAL SALINE 1000ML BAG 1,000 ML IV ONE (17:30)
--- NOTE | 2019-10-20 17:35 | PHYS DOC ---
Past Medical History Past Medical History: Diabetes-Type II Past Surgical History: Hysterectomy Additional Past Surgical Histo: D&C, Ablation, hernia repair Smoking Status: Never Smoker Alcohol Use: Occasionally Drug Use: None General Adult EDM: Chief Complaint: ABDOMINAL PAIN HPI: HPI: Patient is a 39 year old female patient who complains of mid abdominal pain. Patient states that she has had the pain worsening over the last 3 days. States she has a history of a prior abdominal hernia that was strangulated, which feels similar to this. States she had a repair 2 years ago. States over the last couple days, she has not been able to eat or drink much, states no appetite states discomfort has been continued states she had some watery diarrhea today. Denies any fever. Denies any cough. Denies any additional discomfort. Denies dizziness. Review of Systems: Review of Systems: Constitutional: Denies fever or chills. [] Eyes: Denies change in visual acuity. [] HENT: Denies nasal congestion or sore throat. [] Respiratory: Denies cough or shortness of breath. [] Cardiovascular: Denies chest pain or edema. [] GI: Reports abdominal pain, nausea. Denies vomiting. Denies bloody stools. Does state one episode of diarrhea : Denies dysuria. [] Musculoskeletal: Denies back pain or joint pain. [] Integument: Denies rash. [] Neurologic: Denies headache, focal weakness or sensory changes. [] Endocrine: Denies polyuria or polydipsia. [] Lymphatic: Denies swollen glands. [] Psychiatric: Denies depression or anxiety. [] Heart Score: Risk Factors: Risk Factors: DM, Current or recent (<one month) smoker, HTN, HLP, family history of CAD, obesity. Risk Scores: Score 0 - 3: 2.5% MACE over next 6 weeks - Discharge Home Score 4 - 6: 20.3% MACE over next 6 weeks - Admit for Clinical Observation Score 7 - 10: 72.7% MACE over next 6 weeks - Early Invasive Strategies Allergies: Allergies: Allergies Coded Allergies Type Severity Reaction Last Updated Verified doxycycline Allergy Intermediate RASH 07/18/17 Yes Physical Exam: PE: Constitutional: Well developed, well nourished, appears uncomfortable, non-toxic appearance. [] HENT: Normocephalic, atraumatic, oropharynx moist, no oral exudates, nose normal. [] Eyes: PERRLA, EOMI, conjunctiva normal, no discharge. [] Neck: Normal range of motion, no tenderness, supple, no stridor. [] Cardiovascular:Heart rate regular tachycardic rhythm, no murmur [] Lungs & Thorax: Bilateral breath sounds clear to auscultation [] Abdomen: Bowel sounds normal, mass noted superior to umbilicus, approximately 3 cm diameter, with tenderness, no pulsatile masses. [] Skin: Warm, dry, no erythema, no rash. [] Back: No tenderness, no CVA tenderness. [] Extremities: No tenderness, no cyanosis, no clubbing, ROM intact, no edema. [] Neurologic: Alert and oriented X 3, normal motor function, normal sensory function, no focal deficits noted. [] Psychologic: Affect normal, judgement normal, mood normal. [] Current Patient Data: Vital Signs: Vital Signs Date Time Temp Pulse Resp B/P (MAP) Pulse Ox O2 Delivery O2 Flow Rate FiO2 10/20/19 17:12 98.2 84 16 192/105 (134) 99 Room Air 98.2 EKG: EKG: [] Radiology/Procedures: Radiology/Procedures: []Comparison: October 13, 2019 Findings: Lower chest: No consolidation or pleural effusion. Abdomen and pelvis: The liver, spleen, adrenal glands, pancreas and gallbladder are unremarkable. No biliary ductal dilatation. Patent portal veins. Unremarkable appearance of the kidneys. No hydronephrosis. Normal appendix. No evidence of bowel obstruction. No pathologic lymphadenopathy. No ascites. Prior hysterectomy. Fat-containing periumbilical hernia measures 2.8 x 3.3 cm with fascial defect measuring 1.9 cm. Overall unchanged compared to prior. Bones: No pathologic osseous lesions. Impression: 1. No acute abdominal or pelvic pathology. 2. Fat-containing periumbilical hernia, unchanged. Electronically signed by: Henry Cary DO (10/20/2019 6:49 PM) [facility] Course & Med Decision Making: Course & Med Decision Making Pertinent Labs and Imaging studies reviewed. (See chart for details) [] Patient reports that she is feeling little better, discussed findings with patient. Instructed patient on ways to manage her blood sugar better, reports she has episodes at home when she is near 400- 500 at times. Advised patient to monitor her blood sugars, as this can contribute to her abdominal pain. Advised patient of importance of following up with a primary care provider to manage long-term care and her diabetes. As well as consideration for surgical consult for her recurring umbilical hernia discomfort Bobby Disclaimer: Bobby Disclaimer: This electronic medical record was generated, in whole or in part, using a voice recognition dictation system. Departure Departure Impression: Primary Impression: Umbilical hernia Qualified Codes: K42.9 - Umbilical hernia without obstruction or gangrene Additional Impression: Abdominal pain Qualified Codes: R10.84 - Generalized abdominal pain Disposition: HOME, SELF-CARE Condition: GOOD Referrals: NO PCP (PCP) Patient Instructions: Abdominal Pain, How to Avoid Diabetes Problems Additional Instructions: As we discussed, you may take the pills as needed for discomfort in your stomach. Try to resume her diet, light meals. Drink plenty fluids. Make sure you are watching her blood sugar. Find a primary care provider, and start following up with them to manage her blood sugar, and determine if they want to consider a consult with surgery for your recurring umbilical hernia. Scripts Hyoscyamine Sulfate (LEVSIN) 0.125 Mg Tablet 1 TAB PO Q4HRS for 10 Days, #30 TAB 0 Refills Prov: CIELO OLIVO APRN 10/20/19 Justicifation of Admission Dx: Justifications for Admission: Justification of Admission Dx: N/A CIELO OLIVO APRN Oct 20, 2019 17:34
[2019-10-20 17:46] LABS: BASO # 0.1 x10^3/uL (0.0-0.2); BASO % 1 % (0-3); EOS # 0.2 x10^3/uL (0.0-0.7); EOS % 4 % (0-3); HEMATOCRIT 40.2 % (36.0-47.0); HEMOGLOBIN 14.4 g/dL (12.0-15.5); LYMPH # 2.1 x10^3/uL (1.0-4.8); LYMPH % 32 % (24-48); MEAN CORPUSCULAR HEMOGLOBIN 34 pg (25-35); MEAN CORPUSCULAR HGB CONC 36 g/dL (31-37); MEAN CORPUSCULAR VOLUME 95 fL (79-100); MONO # 0.6 x10^3/uL (0.0-1.1); MONO % 9 % (0-9); NEUT # 3.6 x10^3/uL (1.8-7.7); NEUT % 55 % (31-73); PLATELET COUNT 153 x10^3/uL (140-400); RED BLOOD COUNT 4.25 x10^6/uL (3.50-5.40); RED CELL DISTRIBUTION WIDTH 14.2 % (11.5-14.5); WHITE BLOOD COUNT 6.7 x10^3/uL (4.0-11.0)
[2019-10-20 17:55] LABS: CALCIUM 8.4 mg/dL (8.5-10.1); GFR 61.7; POTASSIUM 4.1 mmol/L (3.5-5.1)
[2019-10-20 18:00] LABS: ALBUMIN 3.2 g/dL (3.4-5.0); ALBUMIN/GLOBULIN RATIO 0.8 (1.0-1.7); TOTAL BILIRUBIN 0.3 mg/dL (0.2-1.0); TOTAL PROTEIN 7.2 g/dL (6.4-8.2)
[2019-10-20] MEDS ORDERED: IOHEXOL 300 MG/ML 100ML VIAL. IV ONE (18:30)
--- NOTE | 2019-10-20 18:52 | RAD ---
CT ABD PELV W/ IV CONTRST ONLY History: Reason: abdominal pain, hx strangulated hernia / Spl. Instructions: [id number] 75ML, PRIOR CT 05/14/19 / History: Technique: After the administration of intravenous contrast, CT imaging was performed of the abdomen and pelvis. Multiplanar images are reviewed. Exposure: One or more of the following individualized dose reduction techniques were utilized for this examination: 1. Automated exposure control 2. Adjustment of the mA and/or kV according to patient size 3. Use of iterative reconstruction technique. Comparison: October 13, 2019 Findings: Lower chest: No consolidation or pleural effusion. Abdomen and pelvis: The liver, spleen, adrenal glands, pancreas and gallbladder are unremarkable. No biliary ductal dilatation. Patent portal veins. Unremarkable appearance of the kidneys. No hydronephrosis. Normal appendix. No evidence of bowel obstruction. No pathologic lymphadenopathy. No ascites. Prior hysterectomy. Fat-containing periumbilical hernia measures 2.8 x 3.3 cm with fascial defect measuring 1.9 cm. Overall unchanged compared to prior. Bones: No pathologic osseous lesions. Impression: 1. No acute abdominal or pelvic pathology. 2. Fat-containing periumbilical hernia, unchanged. Electronically signed by: Henry Cary DO (10/20/2019 6:49 PM) [facility]
[2019-10-20 19:28] LABS: BILIRUBIN,URINE NEGATIVE (NEG); CLARITY,URINE CLEAR; COLOR,URINE YELLOW; NITRITE,URINE NEGATIVE (NEG); PH,URINE 5.5 (<5.0-8.0); PROTEIN,URINE NEGATIVE (NEG-TRACE)
[2019-10-20 19:33] LABS: BACTERIA,URINE MODERATE /HPF (0-FEW); RBC,URINE 0 /HPF (0-2); SQUAMOUS EPITHELIAL CELL,UR MANY /LPF
[2019-10-20 19:39] VITALS: BP 164/84
[2019-10-20] MEDS ORDERED: HYOS0.1264 PO (19:52)
[2019-10-20] MEDS ORDERED: HYOSCYAMINE 0.125 MG TAB.RAPDIS PO PRN (20:00)
== END 2019-10-20 20:07 | disposition home or self-care (01) ==
LOC: ER 16:49
DX: K42.9 Umbilical hernia without obstruction or gangrene (principal); R19.7 Diarrhea, unspecified; E11.9 Type 2 diabetes mellitus without complications; Z90.710 Acquired absence of both cervix and uterus; Z88.1 Allergy status to other antibiotic agents
CPT/HCPCS: 36415; 74177; 80053; 81001; 83605; 83690; 85025; 87086; 96374; 96375; 99285; J2270; J2405; J7030; Q9967